=== PATIENT | female | born 1955 | race Two or more races ===

== ENCOUNTER → 2023-08-12 | Outpatient (CLI) | payer OTHER ==
[2023-08-12 12:18] LABS: Basophils # (auto) 0 10 ^3/uL (0-0.2); Basophils % (auto) 0.6 % (0.0-2.0); Eosinophils # (auto) 0.3 10 ^3/uL (0-0.8); Hemoglobin 14.3 g/dL (12.2-16.2); Monocytes # (auto) 0.6 10 ^3/uL (0-1.3); Neutrophils # (auto) 4.8 10 ^3/uL (1.6-8.6); Nucleated Red Blood Cells % 0.1 %
[2023-08-12 12:19] LABS: Eosinophils % (auto) 3.5 % (0.0-7.0); Hematocrit 42.9 % (36.0-46.0); Lymphocytes # (auto) 1.8 10 ^3/uL (0.4-5.4); Lymphocytes % (auto) 23.7 % (10.0-50.0); Mean Corpuscular Hemoglobin 26.3 pg (28.0-32.0); Mean Corpuscular Hgb Conc. 33.2 g/dL (32.0-36.0); Mean Corpuscular Volume 79.2 fL (80.0-100.0); Monocytes % (auto) 7.8 % (0.0-12.0); Neutrophils % (auto) 64.4 % (37.0-80.0); Red Blood Cells 5.42 10^6/uL (4.0-5.20); Red Cell Distribution Width 13.8 % (11.8-14.3); White Blood Cell 7.4 10^3/uL (4.4-10.8)
[2023-08-12 13:03] LABS: Urine Bacteria NONE SEEN /hpf (None Seen); Urine Blood Negative /uL (Negative); Urine Budding Yeast FEW /hpf (None Seen); Urine Clarity Clear (Clear); Urine Color Yellow (Yellow); Urine Protein, UAD Negative (Negative); Urine Specific Gravity 1.012 (1.001-1.035); Urine Urobilinogen Normal (Negative); Urine WBC 20 /hpf (0 - 5)
[2023-08-12 13:10] LABS: Alanine Aminotransferase 31 U/L (7-40); Albumin 4.3 g/dL (3.2-4.8); Alkaline Phosphatase 121 U/L (46-116); Anion Gap 5 (5-15); Aspartate Aminotransferase 13 U/L (13-40); BUN/Creatinine Ratio 16.3 (10.0-20.0); Bilirubin, Total 1.1 mg/dL (0.2-1.0); Blood Urea Nitrogen 13 mg/dL (9-23); Calcium 9.7 mg/dL (8.5-10.1); Carbon Dioxide 30 mmol/L (20-30); Chloride 106 mmol/L (98-107); Cholesterol 182 mg/dL (< 200); Glucose 99 mg/dL (74-106); HDL Cholesterol 44 mg/dL (40-59); LDL Cholesterol 125 mg/dL (< 100); Potassium 4.1 mmol/L (3.5-5.1); Sodium 141 mmol/L (136-145); Total Protein 7.1 g/dL (5.7-8.2); Triglycerides 132 mg/dL (< 150)
== END | disposition home or self-care (01) ==
LOC: LAB 11:58
DX: I10 Essential (primary) hypertension (principal); N28.89 Other specified disorders of kidney and ureter
CPT/HCPCS: 36415; 80053; 80061; 81001; 82274; 82306; 83036; 84443; 85025

== ENCOUNTER 2023-11-09 06:04 | Inpatient (IN) | payer BC, OTHER ==
[~2023-11-09] VITALS: Ht 162.6 cm; Wt 104.5 kg
[2023-11-09 06:52] LABS: Basophils # (auto) 0.1 10 ^3/uL (0-0.2); Eosinophils # (auto) 0.1 10 ^3/uL (0-0.8); Lymphocytes # (auto) 1.9 10 ^3/uL (0.4-5.4); Nucleated Red Blood Cells % 0.1 %
[2023-11-09 06:54] LABS: Eosinophils % (auto) 0.8 % (0.0-7.0); Hematocrit 38.1 % (36.0-46.0); Hemoglobin 12.3 g/dL (12.2-16.2); Lymphocytes % (auto) 13.2 % (10.0-50.0); Mean Corpuscular Hemoglobin 25.8 pg (28.0-32.0); Mean Corpuscular Hgb Conc. 32.4 g/dL (32.0-36.0); Mean Corpuscular Volume 79.6 fL (80.0-100.0); Monocytes # (auto) 1.4 10 ^3/uL (0-1.3); Monocytes % (auto) 9.4 % (0.0-12.0); Neutrophils # (auto) 10.9 10 ^3/uL (1.6-8.6); Neutrophils % (auto) 75.6 % (37.0-80.0); Red Blood Cells 4.79 10^6/uL (4.0-5.20); Red Cell Distribution Width 13.6 % (11.8-14.3); White Blood Cell 14.5 10^3/uL (4.4-10.8)
[2023-11-09 07:08] LABS: Alanine Aminotransferase 20 U/L (7-40); Albumin 4.2 g/dL (3.2-4.8); Alkaline Phosphatase 132 U/L (46-116); Anion Gap 8 (5-15); Aspartate Aminotransferase 12 U/L (13-40); Blood Urea Nitrogen 16 mg/dL (9-23); Calcium 9.2 mg/dL (8.7-10.4); Carbon Dioxide 27 mmol/L (20-30); Chloride 103 mmol/L (98-107); Glucose 112 mg/dL (74-106); Potassium 3.9 mmol/L (3.5-5.1); Sodium 138 mmol/L (136-145)
[2023-11-09 07:09] LABS: Bilirubin, Total 1.4 mg/dL (0.2-1.0); Total Protein 6.7 g/dL (5.7-8.2)
[2023-11-09 07:40] LABS: Urine Bacteria FEW /hpf (None Seen); Urine Blood Negative /uL (Negative); Urine Clarity Clear (Clear); Urine Color Yellow (Yellow); Urine Protein, UAD Negative (Negative); Urine Specific Gravity 1.017 (1.001-1.035); Urine Urobilinogen Normal (Negative); Urine WBC 14 /hpf (0 - 5); Urine pH 5.5 (5.0-8.0)
[2023-11-09] MEDS ORDERED: cefTRIAXone 1GM/50ML D5W 50 ML IV ONE (08:00)
[2023-11-09] MEDS ORDERED: ASPirin-EC 325mg tab PO ONE (08:00)
[2023-11-09] MEDS ORDERED: NITROGLYCERIN 0.4 MG SL TAB SL PRN (10:45)
[2023-11-09] MEDS ORDERED: MORPHINE SULFATE 4 MG/ML SYR/VIAL IV PRN (10:45)
[2023-11-09] MEDS ORDERED: ONDANSETRON HCL 4 MG/2 ML VIAL IV PRN (10:45)
[2023-11-09] MEDS ORDERED: ACETAMINOPHEN 325 MG TAB PO PRN (10:45)
[2023-11-09] MEDS ORDERED: IOHEXOL 350 MG/ML 100ML IJ ONE (11:28)
[2023-11-09 12:05] LABS: COVID19 ANTIGEN SOFIA FIA NEGATIVE (NEGATIVE)
[2023-11-09 12:06] LABS: Rapid Influenza A Negative (Negative); Rapid Influenza B Negative (Negative)
[2023-11-09] MEDS ORDERED: MORPHINE SULFATE INJ 2 MG/ml SYRG IV PRN (12:15)
[2023-11-09 12:35] LABS: INR 1.09 (0.9-1.15); Prothrombin Time 11.4 sec (9.3-11.8)
[2023-11-09] MEDS ORDERED: FUROSEMIDE 20 MG/2 ML VIAL IV ONE (15:00)
[2023-11-09 21:52] VITALS: PULSE 88; RESP 18; TEMP 36.7; O2SAT 98
[2023-11-09 22:00] VITALS: BP 140/78; PULSE 119; RESP 18; TEMP 98.1; O2SAT 95
[2023-11-09] MEDS ORDERED: ENOXAPARIN SOD 100 MG/1 ML SYRINGE SC SCH (22:00)
[2023-11-09] MEDS ORDERED: ATORVASTATIN 20 MG TAB PO SCH (22:00)
[2023-11-09] MEDS: PIPERACILLIN-TAZOB 3.375GM 100 ML IV SCH ×2 (22:05→22:17)
[2023-11-09] MEDS: METOPROLOL TARTRATE 50 MG TAB PO SCH (22:16)
[2023-11-09] MEDS: SODIUM CHLORIDE 0.9% 1,000 ML IV SCH (22:21)
[2023-11-09] MEDS ORDERED: MET50T PO (23:40)
[2023-11-09] MEDS ORDERED: LOSA50TA46 PO (23:41)
[2023-11-10] VITALS (7 sets, daily range): BP systolic 106–138; BP diastolic 47–57; PULSE 68–90; RESP 16–20; TEMP 97.3–98.6; O2SAT 92–98
[2023-11-10] MEDS: PIPERACILLIN-TAZOB 3.375GM 100 ML IV SCH ×2 (06:36→12:21)
[2023-11-10 07:10] LABS: Basophils # (auto) 0 10 ^3/uL (0-0.2); Eosinophils # (auto) 0.1 10 ^3/uL (0-0.8); Mean Corpuscular Volume 79.5 fL (80.0-100.0)
[2023-11-10 07:12] LABS: Basophils % (auto) 0.4 % (0.0-2.0); Hematocrit 33.8 % (36.0-46.0); Lymphocytes # (auto) 1.3 10 ^3/uL (0.4-5.4); Lymphocytes % (auto) 11.4 % (10.0-50.0); Mean Corpuscular Hemoglobin 25.9 pg (28.0-32.0); Mean Corpuscular Hgb Conc. 32.5 g/dL (32.0-36.0); Monocytes # (auto) 1.2 10 ^3/uL (0-1.3); Monocytes % (auto) 10.2 % (0.0-12.0); Nucleated Red Blood Cells % 0.1 %; Red Blood Cells 4.25 10^6/uL (4.0-5.20); Red Cell Distribution Width 13.5 % (11.8-14.3); White Blood Cell 11.7 10^3/uL (4.4-10.8)
[2023-11-10 07:14] LABS: Alanine Aminotransferase 13 U/L (7-40); Alkaline Phosphatase 117 U/L (46-116); Anion Gap 8 (5-15); Aspartate Aminotransferase 9 U/L (13-40); BUN/Creatinine Ratio 15.7 (10.0-20.0); Blood Urea Nitrogen 14 mg/dL (9-23); Calcium 8.9 mg/dL (8.5-10.1); Carbon Dioxide 27 mmol/L (20-30); Chloride 104 mmol/L (98-107); Cholesterol 110 mg/dL (< 200); Glucose 101 mg/dL (74-106); LDL Cholesterol 85 mg/dL (< 100); Potassium 3.7 mmol/L (3.5-5.1); Sodium 139 mmol/L (136-145); Triglycerides 78 mg/dL (< 150)
[2023-11-10 07:15] LABS: Bilirubin, Total 1.1 mg/dL (0.2-1.0); HDL Cholesterol 18 mg/dL (40-59); Total Protein 6.5 g/dL (5.7-8.2)
[2023-11-10] MEDS: METOPROLOL TARTRATE 50 MG TAB PO SCH (09:46)
[2023-11-10] MEDS: SODIUM CHLORIDE 0.9% 1,000 ML IV SCH (09:49)
[2023-11-10] MEDS ORDERED: FUROSEMIDE 20 MG/2 ML VIAL IV SCH (10:00)
[2023-11-10] MEDS ORDERED: ASPirin 81 mg TAB PO SCH (10:00)
[2023-11-10] MEDS ORDERED: ENOXAPARIN SOD 30 MG/0.3 ML SYRINGE SC SCH (10:00)
[2023-11-10] MEDS ORDERED: ENOXAPARIN SOD 40 MG/0.4 ML SYRINGE SC SCH (10:00)
[2023-11-10] MEDS ORDERED: GADOTERATE MEG 10 MMOL/20ml INJ (0.5MMOL/ml) IV ONE (12:11)
[2023-11-10] MEDS ORDERED: CEPH250C PO (16:51)
== END 2023-11-10 19:34 | disposition home or self-care (01) | DRG 675 ==
LOC: ER 06:04 → TELE 11:20 → TELE-EAST 21:45
PROVIDERS: ADMIT Internal Medicine; ATTEND Student in an Organized Health Care Education/Training Program
PROC: 07BC3ZX Excision of Pelvis Lymphatic, Percutaneous Approach, Diagnostic (ICD-10-PCS; principal; 2023-11-10)
DX: N13.6 Pyonephrosis (principal); M79.3 Panniculitis, unspecified; K42.9 Umbilical hernia without obstruction or gangrene; E78.5 Hyperlipidemia, unspecified; E11.9 Type 2 diabetes mellitus without complications; Z20.822 Contact with and (suspected) exposure to COVID-19; K76.0 Fatty (change of) liver, not elsewhere classified; R74.01 Elevation of levels of liver transaminase levels; I10 Essential (primary) hypertension; Z68.39 Body mass index [BMI] 39.0-39.9, adult; E66.01 Morbid (severe) obesity due to excess calories; I11.0 Hypertensive heart disease with heart failure; I50.9 Heart failure, unspecified; J45.909 Unspecified asthma, uncomplicated; Z79.84 Long term (current) use of oral hypoglycemic drugs; Z82.49 Family history of ischemic heart disease and other diseases of the circulatory system; Z83.3 Family history of diabetes mellitus
CPT/HCPCS: 36415; 71045; 71260; 74176; 74177; 76881; 76942; 80053; 80061; 81001; 82378; 83735; 83880; 84484; 85025; 85379; 85610; 86304; 87040; 87086; 87426; 87804; 93005; 93306; 96365; G0378; J2543

== ENCOUNTER → 2024-01-20 | Outpatient (CLI) | payer OTHER, BC ==
[~2024-01-20] MED LIST: CEPH250C PO; LOSA50TA46 PO; MET50T PO
[2024-01-20 11:55] LABS: Alanine Aminotransferase 32 U/L (7-40); Albumin 4.2 g/dL (3.2-4.8); Alkaline Phosphatase 138 U/L (46-116); Anion Gap 6 (5-15); Aspartate Aminotransferase 29 U/L (13-40); BUN/Creatinine Ratio 12.7 (10.0-20.0); Bilirubin, Total 1.5 mg/dL (0.2-1.0); Blood Urea Nitrogen 10 mg/dL (9-23); Calcium 9.5 mg/dL (8.5-10.1); Carbon Dioxide 30 mmol/L (20-30); Chloride 104 mmol/L (98-107); Cholesterol 118 mg/dL (< 200); Glucose 105 mg/dL (74-106); HDL Cholesterol 24 mg/dL (40-59); LDL Cholesterol 83 mg/dL (< 100); Potassium 3.9 mmol/L (3.5-5.1); Sodium 140 mmol/L (136-145); Triglycerides 75 mg/dL (< 150)
[2024-01-20 12:45] LABS: Urine Bacteria FEW /hpf (None Seen); Urine Blood TRACE /uL (Negative); Urine Budding Yeast FEW /hpf (None Seen); Urine Clarity HAZY (Clear); Urine Color Yellow (Yellow); Urine Protein, UAD TRACE (Negative); Urine Specific Gravity 1.016 (1.001-1.035); Urine Urobilinogen Normal (Negative); Urine WBC 200 /hpf (0 - 5)
== END | disposition home or self-care (01) ==
LOC: LAB 11:00
DX: I10 Essential (primary) hypertension (principal); E55.9 Vitamin D deficiency, unspecified; E78.5 Hyperlipidemia, unspecified; E66.01 Morbid (severe) obesity due to excess calories
CPT/HCPCS: 36415; 80053; 80061; 81001; 82306; 83036

== ENCOUNTER 2024-02-11 10:20 | Emergency (ER) | payer BC, OTHER ==
[~2024-02-11] VITALS: Ht 160 cm; Wt 99.1 kg
[2024-02-11 11:20] LABS: Basophils # (auto) 0.1 10 ^3/uL (0-0.2); Eosinophils # (auto) 0.1 10 ^3/uL (0-0.8); Lymphocytes # (auto) 1.4 10 ^3/uL (0.4-5.4)
[2024-02-11 11:21] LABS: Basophils % (auto) 0.5 % (0.0-2.0); Eosinophils % (auto) 0.8 % (0.0-7.0); Hematocrit 34.4 % (36.0-46.0); Hemoglobin 10.8 g/dL (12.2-16.2); Lymphocytes % (auto) 9.4 % (10.0-50.0); Mean Corpuscular Hemoglobin 25.1 pg (28.0-32.0); Mean Corpuscular Hgb Conc. 31.5 g/dL (32.0-36.0); Mean Corpuscular Volume 79.7 fL (80.0-100.0); Monocytes # (auto) 1.6 10 ^3/uL (0-1.3); Monocytes % (auto) 10.7 % (0.0-12.0); Neutrophils # (auto) 11.6 10 ^3/uL (1.6-8.6); Neutrophils % (auto) 78.6 % (37.0-80.0); Red Blood Cells 4.32 10^6/uL (4.0-5.20); Red Cell Distribution Width 15.4 % (11.8-14.3); White Blood Cell 14.8 10^3/uL (4.4-10.8)
[2024-02-11 11:38] LABS: Urine Bacteria NONE SEEN /hpf (None Seen); Urine Blood Negative /uL (Negative); Urine Clarity Clear (Clear); Urine Color Yellow (Yellow); Urine Protein, UAD TRACE (Negative); Urine Specific Gravity 1.014 (1.001-1.035); Urine Urobilinogen Normal (Negative); Urine WBC 1 /hpf (0 - 5); Urine pH 6.5 (5.0-8.0)
[2024-02-11 11:39] LABS: Alanine Aminotransferase 13 U/L (7-40); Albumin 4.1 g/dL (3.2-4.8); Alkaline Phosphatase 131 U/L (46-116); Anion Gap 5 (5-15); Aspartate Aminotransferase 16 U/L (13-40); BUN/Creatinine Ratio 13.7 (10.0-20.0); Blood Urea Nitrogen 13 mg/dL (9-23); Calcium 9.4 mg/dL (8.5-10.1); Carbon Dioxide 30 mmol/L (20-30); Chloride 102 mmol/L (98-107); Glucose 115 mg/dL (74-106); Potassium 4.3 mmol/L (3.5-5.1); Sodium 137 mmol/L (136-145)
[2024-02-11 11:40] LABS: Bilirubin, Direct 0.5 mg/dL (<0.3); Bilirubin, Total 1.1 mg/dL (0.2-1.0); Total Protein 6.6 g/dL (5.7-8.2)
[2024-02-11 12:05] LABS: Lipase 42 U/L (12-53)
[2024-02-11 13:40] VITALS: BP 118/55; PULSE 69; RESP 17; TEMP 99.1; O2SAT 96
== END 2024-02-11 13:42 | disposition home or self-care (01) ==
LOC: ER 10:20
DX: D72.829 Elevated white blood cell count, unspecified (principal); R53.1 Weakness; I10 Essential (primary) hypertension; Z79.899 Other long term (current) drug therapy
CPT/HCPCS: 36415; 71045; 76705; 80048; 80076; 81001; 82962; 83690; 84484; 85025; 93005

== ENCOUNTER 2024-05-12 11:58 | Emergency (ER) | payer OTHER ==
[~2024-05-12] VITALS: Ht 160 cm; Wt 97.2 kg
[~2024-05-12 11:58] MED LIST changes: +LOSA-534 PO; -LOSA50TA46 PO
[2024-05-12 12:37] LABS: Hematocrit 25.3 % (36.0-46.0); Hemoglobin 8.3 g/dL (12.2-16.2); Mean Corpuscular Hemoglobin 24.8 pg (28.0-32.0); Mean Corpuscular Hgb Conc. 32.7 g/dL (32.0-36.0); Mean Corpuscular Volume 75.8 fL (80.0-100.0); Red Blood Cells 3.34 10^6/uL (4.0-5.20); Red Cell Distribution Width 16.2 % (11.8-14.3); White Blood Cell 11.4 10^3/uL (4.4-10.8)
[2024-05-12 12:44] LABS: Band Neutrophils % (manual) 0; Basophils % (manual) 0 (0.0-2.0); Eosinophils % (manual) 0 (0-7); Metamyelocytes % 0; Myelocytes % 0; Promyelocytes % 0; Reactive Lymphocytes 0
[2024-05-12 12:52] LABS: Alanine Aminotransferase 25 U/L (7-40); Albumin 3.5 g/dL (3.2-4.8); Alkaline Phosphatase 244 U/L (46-116); Anion Gap 5 (5-15); Aspartate Aminotransferase 19 U/L (13-40); BUN/Creatinine Ratio 14.4 (10.0-20.0); Bilirubin, Total 0.9 mg/dL (0.2-1.0); Blood Urea Nitrogen 14 mg/dL (9-23); Calcium 8.9 mg/dL (8.5-10.1); Carbon Dioxide 27 mmol/L (20-30); Chloride 102 mmol/L (98-107); Glucose 142 mg/dL (74-106); Magnesium 1.6 mg/dL (1.6-2.6); Potassium 4.2 mmol/L (3.5-5.1); Sodium 134 mmol/L (136-145)
[2024-05-12 12:53] LABS: Total Protein 6.1 g/dL (5.7-8.2)
[2024-05-12 12:59] LABS: INR 1.3 (0.9-1.15); Partial Thromboplastin Time 28.5 SEC (24.5-34.5); Prothrombin Time 13.5 sec (9.3-11.8)
[2024-05-12 13:11] LABS: Blast Cells 3; Lymphocytes % (manual) 8 (10.0-50.0); Monocytes % (manual) 13 (0-12); Platelet Estimate Adequate
[2024-05-12 14:26] LABS: Urine Bacteria FEW /hpf (None Seen); Urine Blood 1+ /uL (Negative); Urine Clarity Ex.Turbid (Clear); Urine Color Orange (Yellow); Urine Mucus FEW (None Seen); Urine Protein, UAD 1+ (Negative); Urine Specific Gravity 1.016 (1.001-1.035); Urine Urobilinogen Normal (Negative); Urine WBC 62 /hpf (0 - 5); Urine pH 5.5 (5.0-9.0)
[2024-05-12 14:48] LABS: COVID19 ANTIGEN SOFIA FIA NEGATIVE (NEGATIVE)
[2024-05-12] MEDS: CIPROFLOXACIN HCL 500 MG TAB PO ONE (15:42)
[2024-05-12] MEDS ORDERED: CIPR-173 PO (16:20)
[2024-05-12 16:50] VITALS: BP 126/54; PULSE 104; RESP 16; TEMP 98.8; O2SAT 98
== END 2024-05-12 16:50 | disposition home or self-care (01) ==
LOC: ER 12:00
DX: D64.9 Anemia, unspecified (principal); R53.1 Weakness; Z79.899 Other long term (current) drug therapy; Z90.89 Acquired absence of other organs; Z98.51 Tubal ligation status; Z20.822 Contact with and (suspected) exposure to COVID-19
CPT/HCPCS: 36415; 71045; 80053; 81001; 83735; 83880; 84484; 85007; 85027; 85610; 85730; 87426; 93005

== ENCOUNTER 2024-05-18 20:39 | Inpatient (IN) | payer OTHER ==
[~2024-05-18] VITALS: Ht 162.6 cm; Wt 103.0 kg
[2024-05-18 20:00] VITALS: PULSE 115
[~2024-05-18 20:39] MED LIST changes: +CIPR-173 PO
[2024-05-18 21:45] VITALS: PULSE 68; RESP 16; O2SAT 98
[2024-05-18] MEDS: SODIUM CHLORIDE 0.9% 1,000 ML IV ONE (21:47)
[2024-05-18 21:52] LABS: Basophils # (auto) 0 10 ^3/uL (0-0.2); Basophils % (auto) 0.4 % (0.0-2.0); Eosinophils # (auto) 0 10 ^3/uL (0-0.8); Hematocrit 24.4 % (36.0-46.0); Hemoglobin 7.7 g/dL (12.2-16.2); Lymphocytes # (auto) 0.9 10 ^3/uL (0.4-5.4); Lymphocytes % (auto) 7.2 % (10.0-50.0); Mean Corpuscular Hemoglobin 23.5 pg (28.0-32.0); Mean Corpuscular Hgb Conc. 31.7 g/dL (32.0-36.0); Mean Corpuscular Volume 74.3 fL (80.0-100.0); Monocytes # (auto) 1.7 10 ^3/uL (0-1.3); Monocytes % (auto) 13.2 % (0.0-12.0); Neutrophils # (auto) 10.4 10 ^3/uL (1.6-8.6); Neutrophils % (auto) 79.2 % (37.0-80.0); Red Blood Cells 3.29 10^6/uL (4.0-5.20); Red Cell Distribution Width 16.7 % (11.8-14.3); White Blood Cell 13.1 10^3/uL (4.4-10.8)
[2024-05-18 22:03] LABS: Chloride 100 mmol/L (98-107); Potassium 3.9 mmol/L (3.5-5.1); Sodium 131 mmol/L (136-145)
[2024-05-18 22:04] LABS: Anion Gap 8 (5-15); Calcium 8.8 mg/dL (8.5-10.1); Carbon Dioxide 23 mmol/L (20-30)
[2024-05-18 22:09] LABS: BUN/Creatinine Ratio 16.3 (10.0-20.0); Blood Urea Nitrogen 23 mg/dL (9-23); Glucose 119 mg/dL (74-106)
[2024-05-18 23:13] LABS: Urine Bacteria None Seen /hpf (None Seen)
[2024-05-18 23:24] LABS: Urine Blood 1+ /uL (Negative); Urine Clarity Ex.Turbid (Clear); Urine Color Orange (Yellow); Urine Protein, UAD 1+ (Negative); Urine Specific Gravity 1.018 (1.001-1.035); Urine Urobilinogen 4 mg/dL (Negative); Urine WBC 15 /hpf (0 - 5); Urine WBC Clumps PRESENT /hpf (None Seen); Urine pH 5.5 (5.0-9.0)
[2024-05-18 23:45] VITALS: PULSE 68; RESP 16; O2SAT 98
[2024-05-19] VITALS (10 sets, daily range): BP systolic 92–123; BP diastolic 40–55; PULSE 68–115; RESP 16–21; TEMP 98.3–99.8; O2SAT 96–100
[2024-05-19] MEDS ORDERED: ACETAMINOPHEN 325 MG TAB PO PRN (01:00)
[2024-05-19] MEDS ORDERED: DOCUSATE SOD 100 MG CAP PO PRN (01:00)
[2024-05-19] MEDS ORDERED: NITROGLYCERIN 0.4 MG SL TAB SL PRN (01:00)
[2024-05-19] MEDS ORDERED: HYDROcodone-ACET 5/325MG TAB PO PRN (01:00)
[2024-05-19] MEDS ORDERED: MORPHINE SULFATE INJ 2 MG/ml SYRG IV PRN (01:00)
[2024-05-19] MEDS ORDERED: ONDANSETRON HCL 4 MG/2 ML VIAL IV PRN (01:00)
[2024-05-19] MEDS ORDERED: hydrALAZINE HCL 20 MG/ML VL IV PRN (01:00)
[2024-05-19] MEDS: cefTRIAXone 1GM/50ML D5W 50 ML IV ONE (03:00)
[2024-05-19] MEDS: SODIUM CHLORIDE 0.9% 1,000 ML IV SCH (03:04)
[2024-05-19] MEDS: AZITHROMYCIN 500MG/ 250ML 250 ML IV ONE (03:11)
[2024-05-19 04:49] LABS: Mean Corpuscular Hgb Conc. 32.3 g/dL (32.0-36.0)
[2024-05-19 04:53] LABS: Hematocrit 20.4 % (36.0-46.0); Mean Corpuscular Hemoglobin 24.2 pg (28.0-32.0); Red Blood Cells 2.72 10^6/uL (4.0-5.20); Red Cell Distribution Width 16.6 % (11.8-14.3); White Blood Cell 11.2 10^3/uL (4.4-10.8)
[2024-05-19 05:07] LABS: Alanine Aminotransferase 39 U/L (7-40); Alkaline Phosphatase 178 U/L (46-116); Anion Gap 6 (5-15); Aspartate Aminotransferase 61 U/L (13-40); Bilirubin, Total 1.2 mg/dL (0.2-1.0); Blood Urea Nitrogen 23 mg/dL (9-23); Calcium 8.5 mg/dL (8.7-10.4); Carbon Dioxide 23 mmol/L (20-30); Chloride 103 mmol/L (98-107); Glucose 109 mg/dL (74-106); Potassium 4.1 mmol/L (3.5-5.1); Sodium 132 mmol/L (136-145); Total Protein 5.8 g/dL (5.7-8.2)
[2024-05-19 06:29] LABS: Hemoglobin 6.6 g/dL (12.2-16.2)
[2024-05-19 06:31] LABS: Band Neutrophils % (manual) 0; Basophils % (manual) 0 (0.0-2.0); Blast Cells 0; Eosinophils % (manual) 0 (0-7); Metamyelocytes % 0; Myelocytes % 0; Promyelocytes % 0; Reactive Lymphocytes 0
[2024-05-19 08:33] LABS: Hematocrit 20.9 % (36.0-46.0); Mean Corpuscular Hemoglobin 24.8 pg (28.0-32.0); Mean Corpuscular Hgb Conc. 33.5 g/dL (32.0-36.0); Red Blood Cells 2.83 10^6/uL (4.0-5.20); Red Cell Distribution Width 16.6 % (11.8-14.3); White Blood Cell 9.5 10^3/uL (4.4-10.8)
[2024-05-19 08:35] LABS: Basophils % (manual) 0 (0.0-2.0); Blast Cells 0; Eosinophils % (manual) 0 (0-7); Metamyelocytes % 0; Myelocytes % 0; Promyelocytes % 0; Reactive Lymphocytes 0
[2024-05-19 09:13] LABS: Band Neutrophils % (manual) 2; Lymphocytes % (manual) 12 (10.0-50.0); Monocytes % (manual) 6 (0-12)
[2024-05-19 09:14] LABS: Hypochromia Slight; Platelet Estimate Adequate
[2024-05-19 09:37] LABS: Lymphocytes % (manual) 12 (10.0-50.0); Monocytes % (manual) 6 (0-12); Platelet Estimate Adequate
[2024-05-19] MEDS: FAMOTIDINE (10MG/ML) 2ML VL IV SCH (10:31)
[2024-05-19] MEDS: diphenhdrAMINE HCL 12.5 MG/5 ML UD PO ONE (11:30)
[2024-05-19] MEDS ORDERED: HYDR12.59 PO (15:43)
[2024-05-19 17:15] LABS: % Iron Saturation 6.5 % (15-50)
[2024-05-19 17:18] LABS: Folate (Folic Acid) 13.25 ng/mL (>5.38); Free T4 (Free Thyroxine) 1.07 ng/dL (0.89-1.76)
[2024-05-19] MEDS: cefTRIAXone 1GM/50ML D5W 50 ML IV SCH (21:17)
[2024-05-20] VITALS (8 sets, daily range): BP systolic 98–115; BP diastolic 40–47; PULSE 78–101; RESP 18–20; TEMP 98.2–99.2; O2SAT 92–100
[2024-05-20] MEDS ORDERED: AZITHROMYCIN 500MG/ 250ML 250 ML IV SCH (03:00)
[2024-05-20 07:21] LABS: Hematocrit 23.7 % (36.0-46.0); Hemoglobin 7.8 g/dL (12.2-16.2); Mean Corpuscular Hemoglobin 25.4 pg (28.0-32.0); Mean Corpuscular Volume 76.9 fL (80.0-100.0); Red Blood Cells 3.08 10^6/uL (4.0-5.20); Red Cell Distribution Width 17.9 % (11.8-14.3); White Blood Cell 6.7 10^3/uL (4.4-10.8)
[2024-05-20 07:23] LABS: Basophils % (manual) 0 (0.0-2.0); Blast Cells 0; Eosinophils % (manual) 0 (0-7); Metamyelocytes % 0; Myelocytes % 0; Promyelocytes % 0; Reactive Lymphocytes 0
[2024-05-20 07:35] LABS: Alanine Aminotransferase 37 U/L (7-40); Alkaline Phosphatase 219 U/L (46-116); Anion Gap 6 (5-15); Aspartate Aminotransferase 51 U/L (13-40); BUN/Creatinine Ratio 26.5 (10.0-20.0); Blood Urea Nitrogen 30 mg/dL (9-23); Calcium 8.6 mg/dL (8.5-10.1); Carbon Dioxide 25 mmol/L (20-30); Chloride 105 mmol/L (98-107); Glucose 70 mg/dL (74-106); Potassium 4.1 mmol/L (3.5-5.1); Sodium 136 mmol/L (136-145); Total Protein 5.6 g/dL (5.7-8.2)
[2024-05-20 08:43] LABS: Band Neutrophils % (manual) 1; Lymphocytes % (manual) 26 (10.0-50.0); Monocytes % (manual) 4 (0-12); Platelet Estimate Adequate
[2024-05-20] MEDS: IRON SUCROSE COMPLEX 100 ML IV SCH (12:03)
[2024-05-20] MEDS ORDERED: OMEP1CAP70 PO (21:10)
[2024-05-21 01:04] VITALS: BP 119/52; PULSE 97; RESP 20; TEMP 98.7; O2SAT 95
[2024-05-21 05:00] VITALS: BP 125/55; PULSE 101; RESP 18; TEMP 98.2; O2SAT 94
[2024-05-21 06:15] LABS: Basophils # (auto) 0 10 ^3/uL (0-0.2); Basophils % (auto) 0.5 % (0.0-2.0); Eosinophils # (auto) 0 10 ^3/uL (0-0.8); Eosinophils % (auto) 0.3 % (0.0-7.0)
[2024-05-21 06:18] LABS: Hematocrit 23.9 % (36.0-46.0); Lymphocytes # (auto) 0.6 10 ^3/uL (0.4-5.4); Lymphocytes % (auto) 8.5 % (10.0-50.0); Mean Corpuscular Hemoglobin 25.2 pg (28.0-32.0); Mean Corpuscular Hgb Conc. 33.3 g/dL (32.0-36.0); Mean Corpuscular Volume 75.7 fL (80.0-100.0); Monocytes % (auto) 13.3 % (0.0-12.0); Neutrophils # (auto) 5.7 10 ^3/uL (1.6-8.6); Neutrophils % (auto) 77.4 % (37.0-80.0); Nucleated Red Blood Cells % 0.1 %; Red Blood Cells 3.16 10^6/uL (4.0-5.20); White Blood Cell 7.4 10^3/uL (4.4-10.8)
[2024-05-21 06:45] LABS: Alanine Aminotransferase 60 U/L (7-40); Alkaline Phosphatase 373 U/L (46-116); Anion Gap 4 (5-15); BUN/Creatinine Ratio 24.4 (10.0-20.0); Blood Urea Nitrogen 22 mg/dL (9-23); Calcium 8.4 mg/dL (8.5-10.1); Carbon Dioxide 24 mmol/L (20-30); Chloride 107 mmol/L (98-107); Glucose 92 mg/dL (74-106); Magnesium 1.6 mg/dL (1.6-2.6); Potassium 3.8 mmol/L (3.5-5.1); Sodium 135 mmol/L (136-145)
[2024-05-21 06:46] LABS: Aspartate Aminotransferase 84 U/L (13-40)
[2024-05-21 06:47] LABS: Bilirubin, Total 1.2 mg/dL (0.2-1.0); Total Protein 5.6 g/dL (5.7-8.2)
[2024-05-21 07:01] LABS: Urine Bacteria None Seen /hpf (None Seen)
[2024-05-21 07:15] LABS: Urine Amorphous Crystal FEW /hpf (None Seen); Urine Blood 1+ /uL (Negative); Urine Clarity Turbid (Clear); Urine Color Yellow (Yellow); Urine Protein, UAD 1+ (Negative); Urine Specific Gravity 1.019 (1.001-1.035); Urine Urobilinogen 6 mg/dL (Negative); Urine WBC 4 /hpf (0 - 5); Urine pH 5.5 (5.0-9.0)
[2024-05-21 08:00] VITALS: PULSE 100; PULSE 93; RESP 18
[2024-05-21 08:17] VITALS: BP 122/55; PULSE 100; RESP 18; TEMP 99; O2SAT 93
[2024-05-21 13:14] VITALS: BP 132/50; PULSE 102; RESP 18; TEMP 99.5; O2SAT 93
[2024-05-21] MEDS ORDERED: FER325T PO (15:58)
[2024-05-21 16:13] VITALS: BP 122/55; PULSE 98; RESP 18; TEMP 98.1; O2SAT 93
== END 2024-05-21 17:20 | disposition home or self-care (01) | DRG 811 ==
LOC: ER 20:39 → TELE 05-19 01:01 → TELE-EAST 05-19 15:11
PROVIDERS: ADMIT Internal Medicine; ATTEND Emergency Medicine
PROC: 30233N1 Transfusion of Nonautologous Red Blood Cells into Peripheral Vein, Percutaneous Approach (ICD-10-PCS; principal; 2024-05-19)
DX: D50.9 Iron deficiency anemia, unspecified (principal); J18.9 Pneumonia, unspecified organism; N17.0 Acute kidney failure with tubular necrosis; E87.1 Hypo-osmolality and hyponatremia; N39.0 Urinary tract infection, site not specified; F32.A Depression, unspecified; R79.89 Other specified abnormal findings of blood chemistry; E66.01 Morbid (severe) obesity due to excess calories; E11.22 Type 2 diabetes mellitus with diabetic chronic kidney disease; I12.9 Hypertensive chronic kidney disease with stage 1 through stage 4 chronic kidney disease, or unspecified chronic kidney disease; N18.9 Chronic kidney disease, unspecified; Z79.2 Long term (current) use of antibiotics; Z79.899 Other long term (current) drug therapy; Z82.79 Family history of other congenital malformations, deformations and chromosomal abnormalities; Z83.3 Family history of diabetes mellitus; Z82.49 Family history of ischemic heart disease and other diseases of the circulatory system; Z81.8 Family history of other mental and behavioral disorders; Z68.39 Body mass index [BMI] 39.0-39.9, adult
CPT/HCPCS: 36415; 70450; 71045; 80048; 80053; 81001; 82550; 82607; 82746; 82962; 83540; 83550; 83605; 83735; 83880; 84439; 84443; 84484; 85007; 85025; 85027; 86850; 86900; 86901; 86920; 87040; 87077; 87081; 87086; 87186; G0378; J1756; J3490

== ENCOUNTER 2024-05-23 13:01 | Inpatient (IN) | payer OTHER ==
[~2024-05-23] VITALS: Ht 160 cm; Wt 118.0 kg
[~2024-05-23 13:01] MED LIST changes: -CIPR-173 PO; +FER325T PO; +HYDR12.59 PO; +OMEP1CAP70 PO
[2024-05-23 14:31] LABS: Basophils # (auto) 0 10 ^3/uL (0-0.2); Basophils % (auto) 0.3 % (0.0-2.0); Eosinophils # (auto) 0 10 ^3/uL (0-0.8); Eosinophils % (auto) 0.1 % (0.0-7.0); Hematocrit 25.4 % (36.0-46.0); Hemoglobin 8.2 g/dL (12.2-16.2); Lymphocytes % (auto) 6.2 % (10.0-50.0); Mean Corpuscular Hemoglobin 24.2 pg (28.0-32.0); Mean Corpuscular Hgb Conc. 32.2 g/dL (32.0-36.0); Mean Corpuscular Volume 75.2 fL (80.0-100.0); Monocytes # (auto) 1.3 10 ^3/uL (0-1.3); Monocytes % (auto) 8.7 % (0.0-12.0); Neutrophils % (auto) 84.7 % (37.0-80.0); Red Blood Cells 3.38 10^6/uL (4.0-5.20); Red Cell Distribution Width 17.9 % (11.8-14.3); White Blood Cell 15.4 10^3/uL (4.4-10.8)
[2024-05-23 14:54] LABS: Alanine Aminotransferase 37 U/L (7-40); Albumin 3.4 g/dL (3.2-4.8); Alkaline Phosphatase 345 U/L (46-116); Anion Gap 11 (5-15); Aspartate Aminotransferase 37 U/L (13-40); BUN/Creatinine Ratio 19.4 (10.0-20.0); Bilirubin, Total 1.9 mg/dL (0.2-1.0); Blood Urea Nitrogen 21 mg/dL (9-23); Calcium 9.3 mg/dL (8.5-10.1); Carbon Dioxide 22 mmol/L (20-30); Chloride 102 mmol/L (98-107); Glucose 105 mg/dL (74-106); Sodium 135 mmol/L (136-145); Total Protein 6.4 g/dL (5.7-8.2)
[2024-05-23] MEDS ORDERED: MORPHINE SULFATE INJ 2 MG/ml SYRG IV PRN ×2 (18:45)
[2024-05-23] MEDS ORDERED: DOCUSATE SOD 100 MG CAP PO PRN (18:45)
[2024-05-23] MEDS ORDERED: NITROGLYCERIN 0.4 MG SL TAB SL PRN (18:45)
[2024-05-23] MEDS: SODIUM CHLORIDE 0.9% 1,000 ML IV SCH (19:41)
[2024-05-23 19:47] LABS: Hemoglobin 7.8 g/dL (12.2-16.2)
[2024-05-23 20:00] VITALS: PULSE 68; RESP 14; O2SAT 98
[2024-05-23] MEDS: cefTRIAXone 1GM/50ML D5W 50 ML IV ONE (20:48)
[2024-05-23] MEDS: ONDANSETRON HCL 4 MG/2 ML VIAL IV PRN (20:50)
[2024-05-23 22:20] VITALS: BP 112/51; PULSE 113; RESP 18; TEMP 98.4; O2SAT 96
[2024-05-23 22:41] VITALS: BP 112/51; PULSE 108; PULSE 110; RESP 18; RESP 20; TEMP 98.4; O2SAT 96
[2024-05-23] MEDS: METOPROLOL TARTRATE 50 MG TAB PO SCH (23:12)
[2024-05-24] VITALS (41 sets, daily range): BP systolic 80–128; BP diastolic 36–98; PULSE 63–89; RESP 16–28; TEMP 96–99.8; O2SAT 91–98
[2024-05-24 06:13] LABS: Basophils # (auto) 0.1 10 ^3/uL (0-0.2); Basophils % (auto) 0.5 % (0.0-2.0); Eosinophils # (auto) 0 10 ^3/uL (0-0.8); Hematocrit 23.6 % (36.0-46.0); Hemoglobin 7.8 g/dL (12.2-16.2); Mean Corpuscular Hemoglobin 25.6 pg (28.0-32.0); Mean Corpuscular Hgb Conc. 32.9 g/dL (32.0-36.0); Monocytes # (auto) 1.1 10 ^3/uL (0-1.3); Red Blood Cells 3.03 10^6/uL (4.0-5.20)
[2024-05-24 06:15] LABS: Lymphocytes # (auto) 0.7 10 ^3/uL (0.4-5.4); Lymphocytes % (auto) 5.7 % (10.0-50.0); Mean Corpuscular Volume 77.7 fL (80.0-100.0); Monocytes % (auto) 8.7 % (0.0-12.0); Neutrophils # (auto) 10.3 10 ^3/uL (1.6-8.6); Neutrophils % (auto) 85.1 % (37.0-80.0); Nucleated Red Blood Cells % 0.1 %; Red Cell Distribution Width 18.6 % (11.8-14.3); White Blood Cell 12.1 10^3/uL (4.4-10.8)
[2024-05-24 06:44] LABS: Alanine Aminotransferase 24 U/L (7-40); Albumin 2.7 g/dL (3.2-4.8); Alkaline Phosphatase 234 U/L (46-116); Anion Gap 10 (5-15); Aspartate Aminotransferase 24 U/L (13-40); BUN/Creatinine Ratio 18.6 (10.0-20.0); Bilirubin, Total 1.2 mg/dL (0.2-1.0); Calcium 8.4 mg/dL (8.5-10.1); Carbon Dioxide 21 mmol/L (20-30); Chloride 104 mmol/L (98-107); Glucose 95 mg/dL (74-106); Potassium 4.1 mmol/L (3.5-5.1); Sodium 135 mmol/L (136-145); Total Protein 5.1 g/dL (5.7-8.2)
[2024-05-24 06:50] LABS: Blood Urea Nitrogen 31 mg/dL (9-23)
[2024-05-24] MEDS: PANTOPRAZOLE 40 MG TAB PO SCH (09:19)
[2024-05-24] MEDS: LOSARTAN POTASSIUM 50 MG TAB PO SCH (09:20)
[2024-05-24] MEDS: cefTRIAXone 1GM/50ML D5W 50 ML IV SCH (09:21)
[2024-05-24] MEDS: HYDROcodone-ACET 5/325MG TAB PO PRN (10:46)
[2024-05-24] MEDS: SODIUM CHLORIDE 0.9% 1,000 ML IV SCH (11:15)
[2024-05-24] MEDS: ALBUMIN 25% 100 ML IV ONE (15:45)
[2024-05-24] MEDS: NOREPINEPHRINE 8 MG/250ML KIT 0 ML IV ONE (15:56)
[2024-05-24] MEDS: NOREPINEPHRINE 8 MG/250ML KIT 250 ML IV SCH (16:10)
[2024-05-24] MEDS: IRON SUCROSE COMPLEX 100 ML IV SCH (16:18)
[2024-05-24] MEDS: NOREPINEPHRINE 8 MG/250ML KIT 250 ML IV ONE (16:45)
[2024-05-24 17:56] LABS: Basophils # (auto) 0 10 ^3/uL (0-0.2); Basophils % (auto) 0.3 % (0.0-2.0); Eosinophils # (auto) 0 10 ^3/uL (0-0.8); Eosinophils % (auto) 0.2 % (0.0-7.0); Hematocrit 24.7 % (36.0-46.0); Hemoglobin 8.1 g/dL (12.2-16.2); Lymphocytes # (auto) 0.6 10 ^3/uL (0.4-5.4); Lymphocytes % (auto) 7.1 % (10.0-50.0); Mean Corpuscular Hemoglobin 25.3 pg (28.0-32.0); Mean Corpuscular Hgb Conc. 32.7 g/dL (32.0-36.0); Mean Corpuscular Volume 77.5 fL (80.0-100.0); Monocytes # (auto) 0.8 10 ^3/uL (0-1.3); Monocytes % (auto) 8.9 % (0.0-12.0); Neutrophils # (auto) 7.4 10 ^3/uL (1.6-8.6); Neutrophils % (auto) 83.5 % (37.0-80.0); Nucleated Red Blood Cells % 0.1 %; Red Blood Cells 3.18 10^6/uL (4.0-5.20); White Blood Cell 8.9 10^3/uL (4.4-10.8)
[2024-05-24 18:04] LABS: Chloride 106 mmol/L (98-107); Potassium 3.6 mmol/L (3.5-5.1); Sodium 137 mmol/L (136-145)
[2024-05-24 18:05] LABS: Anion Gap 9 (5-15); Calcium 8.8 mg/dL (8.5-10.1); Carbon Dioxide 22 mmol/L (20-30)
[2024-05-24 18:10] LABS: BUN/Creatinine Ratio 22.5 (10.0-20.0); Blood Urea Nitrogen 40 mg/dL (9-23); Glucose 107 mg/dL (74-106)
[2024-05-24 18:11] LABS: INR 1.44 (0.9-1.15); Partial Thromboplastin Time 30.5 SEC (24.5-34.5); Prothrombin Time 14.9 sec (9.3-11.8)
[2024-05-24 18:20] LABS: CRP High Sensitivity 19.19 mg/dL (<1.0)
[2024-05-24 18:36] LABS: Erythrocyte Sedimentation Rate 116 mm/hr (0-20)
[2024-05-24] MEDS: ALBUMIN 25% 100 ML IV SCH (22:00)
[2024-05-25] VITALS (40 sets, daily range): BP systolic 97–126; BP diastolic 38–61; PULSE 58–105; RESP 16–37; TEMP 96–100.4; O2SAT 92–99
[2024-05-25 05:31] LABS: Basophils # (auto) 0 10 ^3/uL (0-0.2); Basophils % (auto) 0.4 % (0.0-2.0); Eosinophils # (auto) 0 10 ^3/uL (0-0.8); Eosinophils % (auto) 0.6 % (0.0-7.0); Hematocrit 24.6 % (36.0-46.0); Hemoglobin 7.4 g/dL (12.2-16.2); Lymphocytes # (auto) 0.7 10 ^3/uL (0.4-5.4); Lymphocytes % (auto) 9.3 % (10.0-50.0); Mean Corpuscular Hemoglobin 25.1 pg (28.0-32.0); Mean Corpuscular Hgb Conc. 30.1 g/dL (32.0-36.0); Mean Corpuscular Volume 83.5 fL (80.0-100.0); Monocytes # (auto) 0.6 10 ^3/uL (0-1.3); Monocytes % (auto) 8.9 % (0.0-12.0); Neutrophils # (auto) 5.8 10 ^3/uL (1.6-8.6); Neutrophils % (auto) 80.8 % (37.0-80.0); Nucleated Red Blood Cells % 0.2 %; Red Blood Cells 2.95 10^6/uL (4.0-5.20); White Blood Cell 7.2 10^3/uL (4.4-10.8)
[2024-05-25 05:49] LABS: Chloride 109 mmol/L (98-107); Potassium 3.6 mmol/L (3.5-5.1); Sodium 137 mmol/L (136-145)
[2024-05-25 05:50] LABS: Anion Gap 7 (5-15); Calcium 8.5 mg/dL (8.7-10.4); Carbon Dioxide 21 mmol/L (20-30)
[2024-05-25 05:55] LABS: BUN/Creatinine Ratio 25.4 (10.0-20.0); Blood Urea Nitrogen 34 mg/dL (9-23); Glucose 86 mg/dL (74-106)
[2024-05-25 09:10] LABS: Hepatitis B Surface Antigen Negative (Negative)
[2024-05-25 09:30] LABS: Hepatitis C Antibody Negative (Negative)
[2024-05-26] VITALS (10 sets, daily range): BP systolic 101–129; BP diastolic 34–54; PULSE 76–105; RESP 18–22; TEMP 97.7–99.9; O2SAT 93–97
[2024-05-26 03:12] LABS: Urine Bacteria None Seen /hpf (None Seen)
[2024-05-26 03:39] LABS: Urine Blood 1+ /uL (Negative); Urine Clarity Turbid (Clear); Urine Color Yellow (Yellow); Urine Protein, UAD TRACE (Negative); Urine Specific Gravity 1.017 (1.001-1.035); Urine Urobilinogen 8 mg/dL (Negative); Urine WBC 5 /hpf (0 - 5); Urine pH 5.5 (5.0-9.0)
[2024-05-26 03:42] LABS: Creatinine, Urine 97.53 mg/dL (30.0-125.0)
[2024-05-26 07:38] LABS: Basophils # (auto) 0 10 ^3/uL (0-0.2); Eosinophils # (auto) 0 10 ^3/uL (0-0.8); Eosinophils % (auto) 0.2 % (0.0-7.0); Hemoglobin 7.2 g/dL (12.2-16.2); Lymphocytes # (auto) 0.4 10 ^3/uL (0.4-5.4); Monocytes # (auto) 0.6 10 ^3/uL (0-1.3)
[2024-05-26 07:40] LABS: Basophils % (auto) 0.4 % (0.0-2.0); Hematocrit 21.7 % (36.0-46.0); Lymphocytes % (auto) 6.5 % (10.0-50.0); Mean Corpuscular Hgb Conc. 33.4 g/dL (32.0-36.0); Mean Corpuscular Volume 77.8 fL (80.0-100.0); Neutrophils # (auto) 5.5 10 ^3/uL (1.6-8.6); Neutrophils % (auto) 83.9 % (37.0-80.0); Nucleated Red Blood Cells % 0.1 %; Red Blood Cells 2.79 10^6/uL (4.0-5.20); Red Cell Distribution Width 18.5 % (11.8-14.3); White Blood Cell 6.6 10^3/uL (4.4-10.8)
[2024-05-26 07:48] LABS: Anion Gap 8 (5-15); Calcium 8.5 mg/dL (8.7-10.4); Carbon Dioxide 20 mmol/L (20-30); Chloride 111 mmol/L (98-107); Potassium 3.4 mmol/L (3.5-5.1); Sodium 139 mmol/L (136-145)
[2024-05-26 07:53] LABS: Glucose 87 mg/dL (74-106)
[2024-05-26 07:54] LABS: Blood Urea Nitrogen 26 mg/dL (9-23)
[2024-05-26] MEDS: POTASSIUM CHL 20 Meq TABLET PO ONE (11:24)
[2024-05-27] VITALS (8 sets, daily range): BP systolic 110–167; BP diastolic 47–61; PULSE 87–114; RESP 16–19; TEMP 98.1–101.6; O2SAT 93–97
[2024-05-27 06:21] LABS: Basophils # (auto) 0 10 ^3/uL (0-0.2); Basophils % (auto) 0.4 % (0.0-2.0); Eosinophils # (auto) 0 10 ^3/uL (0-0.8); Eosinophils % (auto) 0.1 % (0.0-7.0); Hematocrit 24.2 % (36.0-46.0); Hemoglobin 8.3 g/dL (12.2-16.2); Lymphocytes # (auto) 0.6 10 ^3/uL (0.4-5.4); Lymphocytes % (auto) 5.8 % (10.0-50.0); Mean Corpuscular Hemoglobin 26.9 pg (28.0-32.0); Mean Corpuscular Hgb Conc. 34.4 g/dL (32.0-36.0); Mean Corpuscular Volume 78.1 fL (80.0-100.0); Monocytes # (auto) 0.7 10 ^3/uL (0-1.3); Monocytes % (auto) 7.2 % (0.0-12.0); Neutrophils # (auto) 8.8 10 ^3/uL (1.6-8.6); Neutrophils % (auto) 86.5 % (37.0-80.0); Nucleated Red Blood Cells % 0.2 %; Red Cell Distribution Width 18.5 % (11.8-14.3); White Blood Cell 10.2 10^3/uL (4.4-10.8)
[2024-05-27 06:24] LABS: Calcium 8.5 mg/dL (8.5-10.1); Chloride 111 mmol/L (98-107); Potassium 3.8 mmol/L (3.5-5.1); Sodium 140 mmol/L (136-145)
[2024-05-27 06:25] LABS: Anion Gap 7 (5-15); Carbon Dioxide 22 mmol/L (20-30)
[2024-05-27 06:30] LABS: BUN/Creatinine Ratio 22.4 (10.0-20.0); Blood Urea Nitrogen 19 mg/dL (9-23); Glucose 93 mg/dL (74-106)
[2024-05-28] VITALS (8 sets, daily range): BP systolic 92–163; BP diastolic 45–89; PULSE 74–107; RESP 17–20; TEMP 97.7–98.6; O2SAT 94–98
[2024-05-28 08:02] LABS: Basophils # (auto) 0.1 10 ^3/uL (0-0.2); Eosinophils # (auto) 0 10 ^3/uL (0-0.8); Eosinophils % (auto) 0.1 % (0.0-7.0); Hemoglobin 8.2 g/dL (12.2-16.2); Lymphocytes # (auto) 0.5 10 ^3/uL (0.4-5.4); Lymphocytes % (auto) 3.7 % (10.0-50.0); Monocytes # (auto) 0.8 10 ^3/uL (0-1.3)
[2024-05-28 08:03] LABS: Basophils % (auto) 0.4 % (0.0-2.0); Mean Corpuscular Hgb Conc. 32.8 g/dL (32.0-36.0); Mean Corpuscular Volume 79.3 fL (80.0-100.0); Monocytes % (auto) 5.5 % (0.0-12.0); Neutrophils % (auto) 90.3 % (37.0-80.0); Red Blood Cells 3.16 10^6/uL (4.0-5.20); White Blood Cell 14.4 10^3/uL (4.4-10.8)
[2024-05-28 08:07] LABS: Chloride 112 mmol/L (98-107); Potassium 3.8 mmol/L (3.5-5.1); Sodium 140 mmol/L (136-145)
[2024-05-28 08:08] LABS: Anion Gap 6 (5-15); Calcium 8.7 mg/dL (8.5-10.1); Carbon Dioxide 22 mmol/L (20-30)
[2024-05-28 08:13] LABS: BUN/Creatinine Ratio 21.6 (10.0-20.0); Blood Urea Nitrogen 19 mg/dL (9-23); Glucose 91 mg/dL (74-106); Magnesium 1.3 mg/dL (1.6-2.6)
[2024-05-28] MEDS: MAGNESIUM SULFATE 1GM/100ML 100 ML IV ONE (15:24)
[2024-05-29] VITALS (7 sets, daily range): BP systolic 98–136; BP diastolic 44–59; PULSE 87–97; RESP 17–20; TEMP 98–98.6; O2SAT 91–97
[2024-05-29 06:13] LABS: Basophils # (auto) 0 10 ^3/uL (0-0.2); Hemoglobin 7.8 g/dL (12.2-16.2); Lymphocytes # (auto) 0.6 10 ^3/uL (0.4-5.4); Monocytes # (auto) 0.7 10 ^3/uL (0-1.3)
[2024-05-29 06:15] LABS: Basophils % (auto) 0.5 % (0.0-2.0); Eosinophils # (auto) 0 10 ^3/uL (0-0.8); Eosinophils % (auto) 0.4 % (0.0-7.0); Hematocrit 23.3 % (36.0-46.0); Lymphocytes % (auto) 5.8 % (10.0-50.0); Mean Corpuscular Hemoglobin 26.3 pg (28.0-32.0); Mean Corpuscular Hgb Conc. 33.4 g/dL (32.0-36.0); Mean Corpuscular Volume 78.7 fL (80.0-100.0); Monocytes % (auto) 7.5 % (0.0-12.0); Neutrophils # (auto) 8.4 10 ^3/uL (1.6-8.6); Neutrophils % (auto) 85.8 % (37.0-80.0); Nucleated Red Blood Cells % 0.1 %; Red Blood Cells 2.96 10^6/uL (4.0-5.20); Red Cell Distribution Width 19.2 % (11.8-14.3); White Blood Cell 9.8 10^3/uL (4.4-10.8)
[2024-05-29 06:25] LABS: Anion Gap 9 (5-15); Calcium 8.8 mg/dL (8.5-10.1); Carbon Dioxide 19 mmol/L (20-30); Chloride 110 mmol/L (98-107); Potassium 3.7 mmol/L (3.5-5.1); Sodium 138 mmol/L (136-145)
[2024-05-29 06:31] LABS: BUN/Creatinine Ratio 26.3 (10.0-20.0); Blood Urea Nitrogen 20 mg/dL (9-23); Glucose 100 mg/dL (74-106)
[2024-05-29] MEDS: BUPIVACAINE 0.25% INJ 50ML VIAL IJ ONE (15:18)
[2024-05-29] MEDS ORDERED: FLUMAZENIL 0.1 MG/ML INJ 10ML MDV IV PRN (15:45)
[2024-05-29] MEDS ORDERED: ePHEDrine SULFATE 50 MG/ML AMP IV PRN (15:45)
[2024-05-29] MEDS ORDERED: LABETALOL HCL 5 MG/ML 4ML SYRINGE IV PRN (15:45)
[2024-05-29] MEDS ORDERED: fentaNYL CITRATE 100 MCG/2 ML VL IV PRN (15:45)
[2024-05-29] MEDS ORDERED: hydrALAZINE HCL 20 MG/ML VL IV PRN (15:45)
[2024-05-29] MEDS ORDERED: HYDROmorphone HCL 2 MG/ML VL/or syr IV PRN (15:45)
[2024-05-29] MEDS ORDERED: ONDANSETRON HCL 4 MG/2 ML VIAL IV PRN (15:45)
[2024-05-29] MEDS ORDERED: NALOXONE HCL 0.4 MG/ML VIAL IV PRN (15:45)
[2024-05-29] MEDS ORDERED: AUG875T PO (17:33)
== END 2024-05-29 20:30 | disposition home or self-care (01) | DRG 853 ==
LOC: ER 13:01 → TELE 19:01 → TELE-CENTR 22:15 → DOU IN ICU 05-24 18:39 → ICU CENTRL 05-24 18:53 → DOU IN ICU 05-25 06:05 → TELE-WESTW 05-25 15:07
PROVIDERS: ADMIT Internal Medicine Geriatric Medicine; ATTEND Internal Medicine Geriatric Medicine
PROC: 30233N1 Transfusion of Nonautologous Red Blood Cells into Peripheral Vein, Percutaneous Approach (ICD-10-PCS; 2024-05-24)
PROC: 07BH0ZZ Excision of Right Inguinal Lymphatic, Open Approach (ICD-10-PCS; principal; 2024-05-29 14:25)
DX: A41.9 Sepsis, unspecified organism (principal); N17.0 Acute kidney failure with tubular necrosis; R65.21 Severe sepsis with septic shock; D62 Acute posthemorrhagic anemia; N39.0 Urinary tract infection, site not specified; Z68.1 Body mass index [BMI] 19.9 or less, adult; C85.10 Unspecified B-cell lymphoma, unspecified site; E86.0 Dehydration; R62.7 Adult failure to thrive; D50.9 Iron deficiency anemia, unspecified; N18.9 Chronic kidney disease, unspecified; E66.01 Morbid (severe) obesity due to excess calories; R59.1 Generalized enlarged lymph nodes; R55 Syncope and collapse; I12.9 Hypertensive chronic kidney disease with stage 1 through stage 4 chronic kidney disease, or unspecified chronic kidney disease; Z88.1 Allergy status to other antibiotic agents; Z88.6 Allergy status to analgesic agent; Z88.0 Allergy status to penicillin; Z82.49 Family history of ischemic heart disease and other diseases of the circulatory system; Z98.51 Tubal ligation status; Z83.3 Family history of diabetes mellitus
CPT/HCPCS: 36415; 80048; 80053; 81001; 82533; 82570; 82962; 83615; 83735; 83935; 84300; 84443; 85014; 85018; 85025; 85610; 85652; 85730; 86141; 86803; 86850; 86900; 86901; 86920; 87040; 87081; 87340; 93306; 93886; 97110; 97116; 97163; 97530; G0378; J1756; J2405; J3490; P9047

== ENCOUNTER 2024-06-07 03:12 | Inpatient (IN) | payer OTHER ==
[2024-06-07] VITALS (12 sets, daily range): BP systolic 116–140; BP diastolic 45–57; PULSE 96–118; RESP 19–31; TEMP 97.3–98.7; O2SAT 96–98
[~2024-06-07] VITALS: Ht 162.6 cm; Wt 104.0 kg
[~2024-06-07 03:12] MED LIST changes: +AUG875T PO; -CEPH250C PO; +CIPR1SUS8 RIGHT EAR; +CLOT1SOL6 RIGHT EAR
[2024-06-07 03:52] LABS: Basophils # (auto) 0 10 ^3/uL (0-0.2); Basophils % (auto) 0.2 % (0.0-2.0); Eosinophils # (auto) 0 10 ^3/uL (0-0.8); Mean Corpuscular Hgb Conc. 33.4 g/dL (32.0-36.0); Monocytes # (auto) 1.1 10 ^3/uL (0-1.3)
[2024-06-07 03:55] LABS: Hematocrit 20.4 % (36.0-46.0); Lymphocytes # (auto) 0.7 10 ^3/uL (0.4-5.4); Lymphocytes % (auto) 5.2 % (10.0-50.0); Mean Corpuscular Hemoglobin 26.1 pg (28.0-32.0); Monocytes % (auto) 8.7 % (0.0-12.0); Neutrophils # (auto) 11.3 10 ^3/uL (1.6-8.6); Neutrophils % (auto) 85.9 % (37.0-80.0); Red Blood Cells 2.61 10^6/uL (4.0-5.20); Red Cell Distribution Width 19.7 % (11.8-14.3); White Blood Cell 13.2 10^3/uL (4.4-10.8)
[2024-06-07 04:12] LABS: Alanine Aminotransferase 13 U/L (7-40); Albumin 2.9 g/dL (3.2-4.8); Alkaline Phosphatase 159 U/L (46-116); Anion Gap 9 (5-15); Aspartate Aminotransferase 23 U/L (13-40); BUN/Creatinine Ratio 16.3 (10.0-20.0); Blood Urea Nitrogen 16 mg/dL (9-23); Calcium 8.9 mg/dL (8.7-10.4); Carbon Dioxide 26 mmol/L (20-30); Chloride 100 mmol/L (98-107); Glucose 99 mg/dL (74-106); Lipase 43 U/L (12-53); Potassium 2.8 mmol/L (3.5-5.1); Sodium 135 mmol/L (136-145)
[2024-06-07 04:13] LABS: Bilirubin, Total 2.9 mg/dL (0.2-1.0); Total Protein 5.8 g/dL (5.7-8.2)
[2024-06-07 04:17] LABS: Hemoglobin 6.8 g/dL (12.2-16.2)
[2024-06-07 04:40] LABS: Lactic Acid w/Reflex 2.5 mmol/L (0.4-2.0)
[2024-06-07] MEDS ORDERED: ONDANSETRON HCL 4 MG/2 ML VIAL IV PRN (06:45)
[2024-06-07 06:46] LABS: Urine Bacteria FEW /hpf (None Seen); Urine Blood 1+ /uL (Negative); Urine Clarity Turbid (Clear); Urine Color Yellow (Yellow); Urine Hyaline Cast FEW /lpf (0 - 2); Urine Mucus FEW (None Seen); Urine Protein, UAD 1+ (Negative); Urine Specific Gravity 1.047 (1.001-1.035); Urine Urobilinogen 6 mg/dL (Negative); Urine WBC 15 /hpf (0 - 5); Urine pH 5.5 (5.0-9.0)
[2024-06-07] MEDS: POTASSIUM CHL 20 Meq TABLET PO ONE (07:06)
[2024-06-07] MEDS: FERROUS SULFATE 325mg EC TAB PO SCH (08:12)
[2024-06-07] MEDS: cefTRIAXone 1GM/50ML D5W 50 ML IV SCH (09:00)
[2024-06-07] MEDS: SODIUM CHLORIDE 0.9% 1,000 ML IV SCH (10:21)
[2024-06-07] MEDS: LOSARTAN POTASSIUM 50 MG TAB PO SCH (10:23)
[2024-06-07] MEDS: hydroCHLOROthiazide 25 MG TAB PO SCH (10:23)
[2024-06-07 10:30] LABS: Amphetamine Screen, Urine Neg (NEGATIVE)
[2024-06-07 10:33] LABS: Barbiturate Scree,Urine Neg (NEGATIVE); Benzodiazephine Screen, Urine Neg (NEGATIVE); Cocaine Screen, Urine Neg (NEGATIVE)
[2024-06-07 10:34] LABS: Cannabinoid Screen, Urine Neg (NEGATIVE); Opiate Scree,Urine Neg (NEGATIVE); Phencyclidine Screen, Urine Neg (NEGATIVE)
[2024-06-07 11:12] LABS: % Iron Saturation 15.1 % (15-50)
[2024-06-07 11:45] LABS: Ferritin > 3300.0 ng/mL (10-291)
[2024-06-07 13:42] LABS: Basophils # (auto) 0 10 ^3/uL (0-0.2); Eosinophils # (auto) 0 10 ^3/uL (0-0.8); Lymphocytes # (auto) 0.7 10 ^3/uL (0.4-5.4); Mean Corpuscular Volume 78.9 fL (80.0-100.0)
[2024-06-07 13:46] LABS: Basophils % (auto) 0.3 % (0.0-2.0); Eosinophils % (auto) 0.1 % (0.0-7.0); Hematocrit 20.3 % (36.0-46.0); Lymphocytes % (auto) 5.7 % (10.0-50.0); Mean Corpuscular Hemoglobin 25.9 pg (28.0-32.0); Mean Corpuscular Hgb Conc. 32.8 g/dL (32.0-36.0); Monocytes % (auto) 8.1 % (0.0-12.0); Neutrophils # (auto) 10.3 10 ^3/uL (1.6-8.6); Neutrophils % (auto) 85.8 % (37.0-80.0); Nucleated Red Blood Cells % 0.1 %; Red Blood Cells 2.57 10^6/uL (4.0-5.20)
[2024-06-07 13:49] LABS: Hemoglobin 6.6 g/dL (12.2-16.2)
[2024-06-07 14:00] LABS: Alanine Aminotransferase 12 U/L (7-40); Albumin 2.6 g/dL (3.2-4.8); Alkaline Phosphatase 146 U/L (46-116); Anion Gap 7 (5-15); Aspartate Aminotransferase 25 U/L (13-40); BUN/Creatinine Ratio 17.9 (10.0-20.0); Blood Urea Nitrogen 14 mg/dL (9-23); Calcium 8.5 mg/dL (8.5-10.1); Carbon Dioxide 26 mmol/L (20-30); Chloride 102 mmol/L (98-107); Cholesterol 109 mg/dL (< 200); Glucose 98 mg/dL (74-106); LDL Cholesterol 51 mg/dL (< 100); Magnesium 1.5 mg/dL (1.6-2.6); Potassium 3.1 mmol/L (3.5-5.1); Sodium 135 mmol/L (136-145); Triglycerides 182 mg/dL (< 150)
[2024-06-07 14:01] LABS: Bilirubin, Total 2.6 mg/dL (0.2-1.0); HDL Cholesterol < 5 mg/dL (40-59); Phosphorus 3.4 mg/dL (2.4-5.1)
[2024-06-07] MEDS: IRON SUCROSE COMPLEX 100 ML IV SCH (14:20)
[2024-06-07 14:50] LABS: INR 1.41 (0.9-1.15); Partial Thromboplastin Time 24.6 SEC (24.5-34.5); Prothrombin Time 14.6 sec (9.3-11.8)
[2024-06-07] MEDS: MAGNESIUM SULFATE 1GM/100ML 100 ML IV ONE (18:40)
[2024-06-07] MEDS: POTASSIUM CHL 20MEQ/100ML 100 ML IV SCH (20:29)
[2024-06-08] VITALS (8 sets, daily range): BP systolic 104–148; BP diastolic 46–69; PULSE 78–117; RESP 14–20; TEMP 97.6–100.4; O2SAT 92–98
[2024-06-08 06:53] LABS: Basophils # (auto) 0 10 ^3/uL (0-0.2); Eosinophils # (auto) 0 10 ^3/uL (0-0.8); Eosinophils % (auto) 0.1 % (0.0-7.0); Lymphocytes # (auto) 0.6 10 ^3/uL (0.4-5.4); White Blood Cell 11.6 10^3/uL (4.4-10.8)
[2024-06-08 06:56] LABS: Basophils % (auto) 0.1 % (0.0-2.0); Hematocrit 23.9 % (36.0-46.0); Hemoglobin 7.9 g/dL (12.2-16.2); Lymphocytes % (auto) 4.8 % (10.0-50.0); Mean Corpuscular Hemoglobin 26.2 pg (28.0-32.0); Mean Corpuscular Hgb Conc. 33.2 g/dL (32.0-36.0); Monocytes # (auto) 0.8 10 ^3/uL (0-1.3); Monocytes % (auto) 6.5 % (0.0-12.0); Neutrophils # (auto) 10.3 10 ^3/uL (1.6-8.6); Neutrophils % (auto) 88.5 % (37.0-80.0); Red Blood Cells 3.02 10^6/uL (4.0-5.20)
[2024-06-08 06:59] LABS: Albumin 2.5 g/dL (3.2-4.8); Alkaline Phosphatase 157 U/L (46-116); Anion Gap 7 (5-15); Aspartate Aminotransferase 25 U/L (13-40); BUN/Creatinine Ratio 16.4 (10.0-20.0); Blood Urea Nitrogen 11 mg/dL (9-23); Calcium 8.5 mg/dL (8.7-10.4); Carbon Dioxide 25 mmol/L (20-30); Chloride 105 mmol/L (98-107); Glucose 81 mg/dL (74-106); Potassium 3.4 mmol/L (3.5-5.1); Sodium 137 mmol/L (136-145); Uric Acid 3.1 mg/dL (3.1-7.8)
[2024-06-08 07:00] LABS: Bilirubin, Total 2.4 mg/dL (0.2-1.0)
[2024-06-08 07:02] LABS: Alanine Aminotransferase 9 U/L (7-40)
[2024-06-08] MEDS ORDERED: VANCOMYCIN PER PHARMACY 0 MG IV SCH (08:15)
[2024-06-08 10:13] LABS: Base Excess 2.9 mmol/L (-2.0-2.0)
[2024-06-08] MEDS: VANCOMYCIN 1GM/200ML 200 ML IV ONE (11:06)
[2024-06-08] MEDS: POTASSIUM CHL 20MEQ/100ML 100 ML IV SCH (11:06)
[2024-06-08] MEDS ORDERED: [UNRECOGNIZED DRUG - CODE] (15:21)
[2024-06-08] MEDS ORDERED: CHOL20006 PO (15:21)
[2024-06-08] MEDS ORDERED: CELE200C PO (15:21)
[2024-06-08] MEDS ORDERED: FERR-7 PO (15:21)
[2024-06-08] MEDS ORDERED: CYCL-839 PO (15:21)
[2024-06-08] MEDS ORDERED: LOSA100T33 PO (15:22)
[2024-06-08 16:30] LABS: Base Excess 0.1 mmol/L (-2.0-2.0)
[2024-06-08] MEDS: ACETAMINOPHEN 325 MG TAB PO PRN (18:02)
[2024-06-09] VITALS (11 sets, daily range): BP systolic 110–122; BP diastolic 44–62; PULSE 63–107; RESP 17–19; TEMP 97.6–99.1; O2SAT 95–98
[2024-06-09] MEDS: VANCOMYCIN 1GM/200ML 200 ML IV SCH (01:00)
[2024-06-09] MEDS: PANTOPRAZOLE 40 MG TAB PO ONE (07:30)
[2024-06-09 09:08] LABS: Hematocrit 23.8 % (36.0-46.0); Hemoglobin 7.8 g/dL (12.2-16.2); Mean Corpuscular Hgb Conc. 32.9 g/dL (32.0-36.0); Mean Corpuscular Volume 79.2 fL (80.0-100.0); Red Blood Cells 3.01 10^6/uL (4.0-5.20); Red Cell Distribution Width 18.3 % (11.8-14.3); White Blood Cell 13.4 10^3/uL (4.4-10.8)
[2024-06-09 09:13] LABS: Basophils % (manual) 0 (0.0-2.0); Blast Cells 0; Eosinophils % (manual) 0 (0-7); Metamyelocytes % 0; Myelocytes % 0; Promyelocytes % 0; Reactive Lymphocytes 0
[2024-06-09 09:19] LABS: Alkaline Phosphatase 158 U/L (46-116); Anion Gap 6 (5-15); Aspartate Aminotransferase 19 U/L (13-40); Blood Urea Nitrogen 18 mg/dL (9-23); Calcium 8.5 mg/dL (8.5-10.1); Carbon Dioxide 27 mmol/L (20-30); Chloride 107 mmol/L (98-107); Glucose 80 mg/dL (74-106); Magnesium 1.6 mg/dL (1.6-2.6); Potassium 3.3 mmol/L (3.5-5.1); Sodium 140 mmol/L (136-145)
[2024-06-09 09:20] LABS: Albumin 2.4 g/dL (3.2-4.8); Bilirubin, Total 2.2 mg/dL (0.2-1.0); Phosphorus 3.9 mg/dL (2.4-5.1); Total Protein 4.7 g/dL (5.7-8.2)
[2024-06-09 09:22] LABS: Alanine Aminotransferase < 9 U/L (7-40)
[2024-06-09 09:46] LABS: Band Neutrophils % (manual) 1; Lymphocytes % (manual) 4 (10.0-50.0); Monocytes % (manual) 6 (0-12)
[2024-06-09 09:47] LABS: Anisocytosis Slight; Hypochromia Slight; Platelet Estimate Adequate
[2024-06-09] MEDS: HEPARIN SODIUM (PORCINE) 5000 UNITS/ML 1ML VIAL ONE (09:50)
[2024-06-09] MEDS: MIDAZOLAM HCL 2MG/2ML 2ml VIAL (1mg/ml) ONE (09:51)
[2024-06-09] MEDS: fentaNYL CITRATE 100 MCG/2 ML VL ONE (09:51)
[2024-06-09] MEDS: LIDOCAINE 2%HCL (LOCAL ANESTH.) INJ 20ML MDV ONE (10:01)
[2024-06-09] MEDS: CLINDAMYCIN 600MG IV 50 ML IV ONE (10:15)
[2024-06-09] MEDS: LIDOCAINE W/ EPINEPHRINE 2% INJ 20ML VIAL ONE (10:24)
[2024-06-09 11:29] LABS: Folate (Folic Acid) 6.41 ng/mL (>5.38)
[2024-06-09] MEDS: POTASSIUM CHL 20 Meq TABLET PO ONE (14:15)
[2024-06-10 01:00] VITALS: BP 120/58; PULSE 107; RESP 18; TEMP 98.9; O2SAT 94
[2024-06-10 01:21] VITALS: BP 128/52; PULSE 115; RESP 18; TEMP 98.4; O2SAT 89
[2024-06-10 04:47] VITALS: BP 125/54; PULSE 110; RESP 15; TEMP 99; O2SAT 92
[2024-06-10 07:41] LABS: Basophils # (auto) 0 10 ^3/uL (0-0.2); Basophils % (auto) 0.4 % (0.0-2.0); Eosinophils # (auto) 0 10 ^3/uL (0-0.8); Hemoglobin 7.4 g/dL (12.2-16.2); Lymphocytes # (auto) 0.5 10 ^3/uL (0.4-5.4); Monocytes # (auto) 0.4 10 ^3/uL (0-1.3)
[2024-06-10 07:42] LABS: Eosinophils % (auto) 0.2 % (0.0-7.0); Hematocrit 21.8 % (36.0-46.0); Mean Corpuscular Hemoglobin 26.8 pg (28.0-32.0); Mean Corpuscular Hgb Conc. 33.9 g/dL (32.0-36.0); Monocytes % (auto) 5.2 % (0.0-12.0); Neutrophils # (auto) 7.5 10 ^3/uL (1.6-8.6); Neutrophils % (auto) 88.2 % (37.0-80.0); Red Blood Cells 2.75 10^6/uL (4.0-5.20); Red Cell Distribution Width 18.1 % (11.8-14.3); White Blood Cell 8.5 10^3/uL (4.4-10.8)
[2024-06-10 07:52] LABS: INR 1.37 (0.9-1.15); Partial Thromboplastin Time 30.4 SEC (24.5-34.5); Prothrombin Time 14.2 sec (9.3-11.8)
[2024-06-10 07:59] LABS: Albumin 2.4 g/dL (3.2-4.8); Alkaline Phosphatase 161 U/L (46-116); Anion Gap 6 (5-15); Aspartate Aminotransferase 21 U/L (13-40); Calcium 8.6 mg/dL (8.7-10.4); Carbon Dioxide 24 mmol/L (20-30); Chloride 108 mmol/L (98-107); Glucose 81 mg/dL (74-106); Magnesium 1.6 mg/dL (1.6-2.6); Potassium 3.7 mmol/L (3.5-5.1); Sodium 138 mmol/L (136-145)
[2024-06-10 08:00] LABS: Bilirubin, Total 1.7 mg/dL (0.2-1.0); Phosphorus 3.1 mg/dL (2.4-5.1); Total Protein 4.8 g/dL (5.7-8.2)
[2024-06-10] MEDS: PANTOPRAZOLE 40 MG TAB PO SCH (08:05)
[2024-06-10 08:08] LABS: Alanine Aminotransferase < 9 U/L (7-40)
[2024-06-10 08:46] LABS: BUN/Creatinine Ratio 26.8 (10.0-20.0); Blood Urea Nitrogen 15 mg/dL (9-23)
[2024-06-10 09:00] VITALS: BP 132/54; PULSE 107; RESP 18; TEMP 99.6; O2SAT 97
[2024-06-10] MEDS ORDERED: PANT40T PO (13:56)
[2024-06-10] MEDS ORDERED: ACET-1882 PO (13:56)
[2024-06-10] MEDS ORDERED: FLUC100T34 PO (13:56)
[2024-06-10] MEDS: FLUCONAZOLE 100 MG TAB PO ONE (14:32)
[2024-06-10 16:39] VITALS: BP 147/70; PULSE 121; RESP 18; TEMP 98; O2SAT 97
[2024-06-10 17:21] VITALS: BP 132/54; TEMP 36.7
[2024-06-11] MEDS ORDERED: FLUCONAZOLE 100 MG TAB PO SCH (10:00)
== END 2024-06-10 18:00 | disposition home health service (06) | DRG 871 ==
LOC: ER 03:12 → OVERFLOW 06:49 → WEST WING 21:33
PROVIDERS: ADMIT Internal Medicine; ATTEND Internal Medicine
PROC: 30233N1 Transfusion of Nonautologous Red Blood Cells into Peripheral Vein, Percutaneous Approach (ICD-10-PCS; principal; 2024-06-07)
PROC: 0JH63WZ Insertion of Totally Implantable Vascular Access Device into Chest Subcutaneous Tissue and Fascia, Percutaneous Approach (ICD-10-PCS; 2024-06-09)
PROC: 02HV33Z Insertion of Infusion Device into Superior Vena Cava, Percutaneous Approach (ICD-10-PCS; 2024-06-09)
PROC: B5181ZA Fluoroscopy of Superior Vena Cava using Low Osmolar Contrast, Guidance (ICD-10-PCS; 2024-06-09)
PROC: B548ZZA Ultrasonography of Superior Vena Cava, Guidance (ICD-10-PCS; 2024-06-09)
DX: A41.9 Sepsis, unspecified organism (principal); G93.41 Metabolic encephalopathy; J96.01 Acute respiratory failure with hypoxia; D61.818 Other pancytopenia; G93.1 Anoxic brain damage, not elsewhere classified; B37.89 Other sites of candidiasis; C83.35 Diffuse large B-cell lymphoma, lymph nodes of inguinal region and lower limb; D50.9 Iron deficiency anemia, unspecified; E66.9 Obesity, unspecified; E87.6 Hypokalemia; I10 Essential (primary) hypertension; K76.0 Fatty (change of) liver, not elsewhere classified; K76.82 Hepatic encephalopathy; E11.9 Type 2 diabetes mellitus without complications; Z82.49 Family history of ischemic heart disease and other diseases of the circulatory system; Z88.0 Allergy status to penicillin; Z88.1 Allergy status to other antibiotic agents; Z83.3 Family history of diabetes mellitus; Z68.39 Body mass index [BMI] 39.0-39.9, adult; Z79.4 Long term (current) use of insulin
CPT/HCPCS: 36415; 36558; 36600; 70450; 71045; 74177; 76830; 76856; 77001; 80053; 80061; 80202; 80307; 81001; 82140; 82270; 82306; 82607; 82728; 82746; 82805; 82962; 83010; 83036; 83540; 83550; 83605; 83615; 83690; 83735; 83880; 84100; 84443; 84550; 85007; 85025; 85027; 85045; 85610; 85730; 86850; 86900; 86901; 86920; 87040; 87081; 87086; 87088; 93005; 97162; 97163; 99152; C1894; G0378; J1756; J2250; J3480; J3490

== ENCOUNTER 2024-06-12 20:18 | Inpatient (IN) | payer OTHER ==
[~2024-06-12] VITALS: Ht 172.7 cm; Wt 114.8 kg
[~2024-06-12 20:18] MED LIST changes: +ACET-1882 PO; -AUG875T PO; +CHOL20006 PO; -CIPR1SUS8 RIGHT EAR; +CYCL-839 PO; -FER325T PO; +FERR-7 PO; +FLUC100T34 PO; -HYDR12.59 PO; -LOSA-534 PO; +LOSA100T33 PO; +PANT40T PO; +[UNRECOGNIZED DRUG - CODE]
[2024-06-12] MEDS: LEVALBUTEROL HCL 1.25 MG/3 ML NEB NEB ONE (20:36)
[2024-06-12] MEDS: dilTIAZem 25 MG/5 ML VIAL IV ONE ×2 (20:45→21:18)
[2024-06-12 21:00] VITALS: PULSE 185; RESP 40; O2SAT 98
[2024-06-12 21:07] LABS: Base Excess -1.5 mmol/L (-2.0-2.0)
[2024-06-12] MEDS ORDERED: dilTIAZem 125mg/125ml BAG KIT 125 ML IV SCH (21:30)
[2024-06-12 21:40] LABS: Basophils # (auto) 0 10 ^3/uL (0-0.2); Eosinophils # (auto) 0 10 ^3/uL (0-0.8); Eosinophils % (auto) 0.2 % (0.0-7.0); Hemoglobin 7.6 g/dL (12.2-16.2); Mean Corpuscular Hgb Conc. 33.6 g/dL (32.0-36.0); Monocytes # (auto) 0.5 10 ^3/uL (0-1.3); Neutrophils # (auto) 7.7 10 ^3/uL (1.6-8.6)
[2024-06-12 21:42] LABS: Basophils % (auto) 0.1 % (0.0-2.0); Hematocrit 22.7 % (36.0-46.0); Lymphocytes # (auto) 0.6 10 ^3/uL (0.4-5.4); Lymphocytes % (auto) 6.5 % (10.0-50.0); Mean Corpuscular Hemoglobin 26.9 pg (28.0-32.0); Monocytes % (auto) 5.7 % (0.0-12.0); Neutrophils % (auto) 87.5 % (37.0-80.0); Red Blood Cells 2.83 10^6/uL (4.0-5.20); Red Cell Distribution Width 18.2 % (11.8-14.3); White Blood Cell 8.8 10^3/uL (4.4-10.8)
[2024-06-12 21:53] LABS: Alanine Aminotransferase < 9 U/L (7-40); Albumin 2.6 g/dL (3.2-4.8); Alkaline Phosphatase 135 U/L (46-116); Anion Gap 10 (5-15); Aspartate Aminotransferase 21 U/L (13-40); BUN/Creatinine Ratio 33.3 (10.0-20.0); Bilirubin, Total 2.1 mg/dL (0.2-1.0); Blood Urea Nitrogen 26 mg/dL (9-23); Calcium 9.4 mg/dL (8.7-10.4); Carbon Dioxide 22 mmol/L (20-30); Chloride 105 mmol/L (98-107); Glucose 109 mg/dL (74-106); Potassium 3.4 mmol/L (3.5-5.1); Sodium 137 mmol/L (136-145); Total Protein 5.2 g/dL (5.7-8.2)
[2024-06-12] MEDS: METOPROLOL TARTRATE 1MG/1ML-5ML VIAL IV ONE (21:56)
[2024-06-12] MEDS: dilTIAZem 125mg/125ml BAG KIT 125 ML IV ONE (21:57)
[2024-06-12] MEDS ORDERED: ALBUTEROL SULF 2.5 MG/0.5ML(0.5%) NEB SOLN NEB PRN (22:15)
[2024-06-12] MEDS ORDERED: NITROGLYCERIN 0.4 MG SL TAB SL PRN (22:15)
[2024-06-12] MEDS ORDERED: ONDANSETRON HCL 4 MG/2 ML VIAL IV PRN (22:15)
[2024-06-12] MEDS ORDERED: MORPHINE SULFATE INJ 2 MG/ml SYRG IV PRN (22:15)
[2024-06-12] MEDS ORDERED: ACETAMINOPHEN 325 MG TAB PO PRN (22:15)
[2024-06-12] MEDS: ALBUMIN 5% 250 ML IV ONE (22:15)
[2024-06-12] MEDS: DIGOXIN (250MCG/ML) 2 ML AMPULE IV ONE (22:15)
[2024-06-12] MEDS: POTASSIUM CHL 20 Meq TABLET PO ONE (22:15)
[2024-06-12 22:49] LABS: INR 1.51 (0.9-1.15); Partial Thromboplastin Time 29.8 SEC (24.5-34.5); Prothrombin Time 15.5 sec (9.3-11.8)
[2024-06-12 23:02] VITALS: BP 134/74; PULSE 160; RESP 24; TEMP 98.8; O2SAT 99
[2024-06-13] VITALS (11 sets, daily range): BP systolic 101–113; BP diastolic 47–64; PULSE 114–140; RESP 16–22; TEMP 98.2–98.6; O2SAT 96–99
[2024-06-13] MEDS: AMIODARONE BOLUS KIT 100 ML IV ONE (00:15)
[2024-06-13] MEDS: AMIODARONE 450mg/250ml AE 250 ML IV SCH ×2 (00:42→08:42)
[2024-06-13 04:53] LABS: Anion Gap 9 (5-15); Carbon Dioxide 23 mmol/L (20-30); Chloride 106 mmol/L (98-107); Potassium 3.7 mmol/L (3.5-5.1); Sodium 138 mmol/L (136-145)
[2024-06-13 04:54] LABS: Calcium 9.3 mg/dL (8.7-10.4)
[2024-06-13 04:59] LABS: BUN/Creatinine Ratio 31.4 (10.0-20.0); Blood Urea Nitrogen 27 mg/dL (9-23); Glucose 120 mg/dL (74-106)
[2024-06-13 05:03] LABS: Urine Bacteria None Seen /hpf (None Seen)
[2024-06-13 05:05] LABS: Basophils # (auto) 0 10 ^3/uL (0-0.2); Basophils % (auto) 0.2 % (0.0-2.0); Eosinophils # (auto) 0 10 ^3/uL (0-0.8); Eosinophils % (auto) 0.2 % (0.0-7.0); Mean Corpuscular Volume 80.2 fL (80.0-100.0); Neutrophils # (auto) 6.6 10 ^3/uL (1.6-8.6); White Blood Cell 7.6 10^3/uL (4.4-10.8)
[2024-06-13 05:09] LABS: Hematocrit 20.2 % (36.0-46.0); Lymphocytes # (auto) 0.5 10 ^3/uL (0.4-5.4); Lymphocytes % (auto) 6.3 % (10.0-50.0); Mean Corpuscular Hemoglobin 26.9 pg (28.0-32.0); Mean Corpuscular Hgb Conc. 33.5 g/dL (32.0-36.0); Monocytes # (auto) 0.6 10 ^3/uL (0-1.3); Monocytes % (auto) 7.4 % (0.0-12.0); Neutrophils % (auto) 85.9 % (37.0-80.0); Nucleated Red Blood Cells % 0.1 %; Red Blood Cells 2.52 10^6/uL (4.0-5.20); Red Cell Distribution Width 18.4 % (11.8-14.3)
[2024-06-13 05:19] LABS: Urine Amorphous Crystal FEW /hpf (None Seen); Urine Blood TRACE /uL (Negative); Urine Clarity Turbid (Clear); Urine Color Yellow (Yellow); Urine Mucus FEW (None Seen); Urine Protein, UAD 1+ (Negative); Urine Specific Gravity 1.021 (1.001-1.035); Urine Urobilinogen 2 mg/dL (Negative); Urine WBC 2 /hpf (0 - 5); Urine pH 5.5 (5.0-9.0)
[2024-06-13 05:26] LABS: Hemoglobin 6.8 g/dL (12.2-16.2)
[2024-06-13] MEDS: PANTOPRAZOLE 40 MG TAB PO SCH (06:09)
[2024-06-13] MEDS: hydroCHLOROthiazide 25 MG TAB PO SCH (10:00)
[2024-06-13] MEDS: ENOXAPARIN SOD 40 MG/0.4 ML SYRINGE SC SCH (10:00)
[2024-06-13] MEDS: levoFLOXacin 500MG 100 ML IV SCH (10:00)
[2024-06-13] MEDS: LOSARTAN POTASSIUM 50 MG TAB PO SCH (10:00)
[2024-06-13 10:30] LABS: Amphetamine Screen, Urine Neg (NEGATIVE)
[2024-06-13 10:31] LABS: Barbiturate Scree,Urine Neg (NEGATIVE); Benzodiazephine Screen, Urine Pos (NEGATIVE)
[2024-06-13 10:32] LABS: Cannabinoid Screen, Urine Neg (NEGATIVE); Cocaine Screen, Urine Neg (NEGATIVE); Opiate Scree,Urine Neg (NEGATIVE); Phencyclidine Screen, Urine Neg (NEGATIVE)
[2024-06-13] MEDS: FERROUS SULFATE 325mg EC TAB PO SCH (10:54)
[2024-06-13] MEDS: LEVALBUTEROL HCL 1.25 MG/3 ML NEB NEB SCH (12:17)
[2024-06-13] MEDS: IPRATROPIUM BROM 0.5 MG/2.5ML INH SOL NEB SCH (12:17)
[2024-06-13] MEDS: IOHEXOL 350 MG/ML 100ML IJ ONE (12:55)
[2024-06-13] MEDS: FLUCONAZOLE 200MG/100ML 100 ML IV ONE (13:46)
[2024-06-13] MEDS: ERGOCALCIFEROL 50,000 UNIT(1.25MG) CAP PO SCH (15:21)
[2024-06-13] MEDS: CYANOCOBALAMIN (B-12) 1000 MCG/1 ML VIAL IM ONE (15:22)
[2024-06-13] MEDS: DIGOXIN (250MCG/ML) 2 ML AMPULE IV ONE (18:02)
[2024-06-13] MEDS ORDERED: ERGOCALCIFEROL 50,000 UNIT(1.25MG) CAP PO SCH (19:30)
[2024-06-13 21:12] LABS: Hemoglobin 7.5 g/dL (12.2-16.2)
[2024-06-13] MEDS ORDERED: ENOXAPARIN SOD 150 MG/1 ML SYRINGE SC SCH (22:00)
[2024-06-13 22:37] LABS: Basophils # (auto) 0 10 ^3/uL (0-0.2); Basophils % (auto) 0.6 % (0.0-2.0); Eosinophils # (auto) 0.1 10 ^3/uL (0-0.8); Eosinophils % (auto) 1.4 % (0.0-7.0); Hematocrit 25.1 % (36.0-46.0); Hemoglobin 8.2 g/dL (12.2-16.2); Lymphocytes # (auto) 0.5 10 ^3/uL (0.4-5.4); Lymphocytes % (auto) 6.4 % (10.0-50.0); Mean Corpuscular Hemoglobin 26.4 pg (28.0-32.0); Mean Corpuscular Hgb Conc. 32.6 g/dL (32.0-36.0); Monocytes # (auto) 0.6 10 ^3/uL (0-1.3); Monocytes % (auto) 7.6 % (0.0-12.0); Neutrophils # (auto) 6.6 10 ^3/uL (1.6-8.6); Nucleated Red Blood Cells % 0.3 %; Red Cell Distribution Width 17.9 % (11.8-14.3); White Blood Cell 7.9 10^3/uL (4.4-10.8)
[2024-06-13 22:50] LABS: Platelet Estimate Decreased
[2024-06-13 22:51] LABS: Hypochromia Slight
[2024-06-14] VITALS (16 sets, daily range): BP systolic 76–117; BP diastolic 39–60; PULSE 98–140; RESP 16–32; TEMP 97.4–98.4; O2SAT 96–100
[2024-06-14] MEDS ORDERED: PANTOPRAZOLE 40 MG TAB PO SCH (06:00)
[2024-06-14 06:53] LABS: Basophils # (auto) 0 10 ^3/uL (0-0.2); Eosinophils # (auto) 0.1 10 ^3/uL (0-0.8); Lymphocytes # (auto) 0.5 10 ^3/uL (0.4-5.4); Mean Corpuscular Hgb Conc. 33.5 g/dL (32.0-36.0); Neutrophils # (auto) 5.8 10 ^3/uL (1.6-8.6)
[2024-06-14 06:55] LABS: Basophils % (auto) 0.4 % (0.0-2.0); Eosinophils % (auto) 1.9 % (0.0-7.0); Hematocrit 24.4 % (36.0-46.0); Hemoglobin 8.2 g/dL (12.2-16.2); Lymphocytes % (auto) 7.7 % (10.0-50.0); Mean Corpuscular Hemoglobin 27.3 pg (28.0-32.0); Mean Corpuscular Volume 81.6 fL (80.0-100.0); Monocytes # (auto) 0.5 10 ^3/uL (0-1.3); Monocytes % (auto) 7.2 % (0.0-12.0); Neutrophils % (auto) 82.8 % (37.0-80.0); Nucleated Red Blood Cells % 0.1 %; Red Blood Cells 2.99 10^6/uL (4.0-5.20); Red Cell Distribution Width 17.7 % (11.8-14.3)
[2024-06-14 06:59] LABS: Albumin 2.4 g/dL (3.2-4.8); Alkaline Phosphatase 111 U/L (46-116); Anion Gap 7 (5-15); Aspartate Aminotransferase 13 U/L (13-40); BUN/Creatinine Ratio 35.1 (10.0-20.0); Bilirubin, Total 1.6 mg/dL (0.2-1.0); Blood Urea Nitrogen 26 mg/dL (9-23); Calcium 9.4 mg/dL (8.7-10.4); Carbon Dioxide 25 mmol/L (20-30); Chloride 107 mmol/L (98-107); Glucose 109 mg/dL (74-106); Sodium 139 mmol/L (136-145); Total Protein 4.8 g/dL (5.7-8.2)
[2024-06-14 07:00] LABS: Alanine Aminotransferase < 9 U/L (7-40)
[2024-06-14] MEDS: FLUCONAZOLE 200MG/100ML 100 ML IV SCH (09:27)
[2024-06-14] MEDS: LACTATED RINGER'S 500 ML IV ONE (10:00)
[2024-06-14] MEDS ORDERED: METOPROLOL TARTRATE 25 MG TAB PO ONE (10:00)
[2024-06-14] MEDS: HYALURONIDASE 150 UNIT/1 ML SUBCUT ONE (12:41)
[2024-06-14] MEDS ORDERED: ERGOCALCIFEROL 50,000 UNIT(1.25MG) CAP PO SCH (20:00)
[2024-06-14] MEDS: FUROSEMIDE 20 MG/2 ML VIAL IV ONE (22:53)
[2024-06-15] VITALS (25 sets, daily range): BP systolic 112–168; BP diastolic 41–60; PULSE 92–122; RESP 18–35; TEMP 97.4–98.8; O2SAT 94–100
[2024-06-15] MEDS: ALBUMIN 25% 100 ML IV SCH (00:41)
[2024-06-15 06:15] LABS: Basophils # (auto) 0 10 ^3/uL (0-0.2); Basophils % (auto) 0.2 % (0.0-2.0); Eosinophils # (auto) 0.1 10 ^3/uL (0-0.8)
[2024-06-15 06:18] LABS: Hematocrit 20.8 % (36.0-46.0); Lymphocytes # (auto) 0.4 10 ^3/uL (0.4-5.4); Lymphocytes % (auto) 7.8 % (10.0-50.0); Mean Corpuscular Hgb Conc. 33.2 g/dL (32.0-36.0); Mean Corpuscular Volume 81.3 fL (80.0-100.0); Monocytes # (auto) 0.4 10 ^3/uL (0-1.3); Neutrophils # (auto) 4.4 10 ^3/uL (1.6-8.6); Nucleated Red Blood Cells % 0.2 %; Red Blood Cells 2.56 10^6/uL (4.0-5.20); Red Cell Distribution Width 17.6 % (11.8-14.3); White Blood Cell 5.3 10^3/uL (4.4-10.8)
[2024-06-15 06:32] LABS: Albumin 2.4 g/dL (3.2-4.8); Alkaline Phosphatase 91 U/L (46-116); Aspartate Aminotransferase 11 U/L (13-40); Calcium 9.3 mg/dL (8.7-10.4)
[2024-06-15 06:33] LABS: Anion Gap 7 (5-15); BUN/Creatinine Ratio 34.8 (10.0-20.0); Bilirubin, Total 1.8 mg/dL (0.2-1.0); Blood Urea Nitrogen 23 mg/dL (9-23); Carbon Dioxide 26 mmol/L (20-30); Chloride 106 mmol/L (98-107); Glucose 97 mg/dL (74-106); Magnesium 1.7 mg/dL (1.6-2.6); Potassium 3.9 mmol/L (3.5-5.1); Sodium 139 mmol/L (136-145); Total Protein 4.6 g/dL (5.7-8.2)
[2024-06-15 06:34] LABS: Hemoglobin 6.9 g/dL (12.2-16.2)
[2024-06-15 06:35] LABS: Alanine Aminotransferase < 9 U/L (7-40)
[2024-06-15] MEDS: DIGOXIN 0.125 MG TAB PO SCH (10:00)
[2024-06-15 10:07] LABS: Hematocrit 20.1 % (36.0-46.0)
[2024-06-15 10:12] LABS: Hemoglobin 6.8 g/dL (12.2-16.2)
[2024-06-15] MEDS: AMIODARONE HCL 200 MG TAB PO SCH (15:50)
[2024-06-15 18:10] LABS: Hemoglobin 7.6 g/dL (12.2-16.2)
[2024-06-15] MEDS: MICAFUNGIN SODIUM 100 MG in SODIUM CHL 0.9% 100 ML IV ONE (20:02)
[2024-06-15] MEDS: CYANOCOBALAMIN (B-12) 1000 MCG/1 ML VIAL SUBCUT ONE (23:50)
[2024-06-16] VITALS (24 sets, daily range): BP systolic 138–169; BP diastolic 50–76; PULSE 108–142; RESP 18–37; TEMP 98.1–98.9; O2SAT 95–100
[2024-06-16] MEDS: dilTIAZem 25 MG/5 ML VIAL IV ONE (01:19)
[2024-06-16 04:32] LABS: Basophils # (auto) 0 10 ^3/uL (0-0.2); Basophils % (auto) 0.4 % (0.0-2.0); Eosinophils # (auto) 0 10 ^3/uL (0-0.8); Eosinophils % (auto) 0.5 % (0.0-7.0); Hematocrit 26.8 % (36.0-46.0); Hemoglobin 8.9 g/dL (12.2-16.2); Lymphocytes # (auto) 0.3 10 ^3/uL (0.4-5.4); Lymphocytes % (auto) 4.9 % (10.0-50.0); Mean Corpuscular Hemoglobin 27.8 pg (28.0-32.0); Mean Corpuscular Hgb Conc. 33.2 g/dL (32.0-36.0); Mean Corpuscular Volume 83.7 fL (80.0-100.0); Monocytes # (auto) 0.6 10 ^3/uL (0-1.3); Monocytes % (auto) 8.9 % (0.0-12.0); Neutrophils # (auto) 5.5 10 ^3/uL (1.6-8.6); Neutrophils % (auto) 85.3 % (37.0-80.0); Nucleated Red Blood Cells % 0.2 %; Red Blood Cells 3.21 10^6/uL (4.0-5.20); Red Cell Distribution Width 18.3 % (11.8-14.3); White Blood Cell 6.5 10^3/uL (4.4-10.8)
[2024-06-16 04:39] LABS: Chloride 106 mmol/L (98-107); Potassium 4.1 mmol/L (3.5-5.1); Sodium 137 mmol/L (136-145)
[2024-06-16 04:40] LABS: Anion Gap 6 (5-15); Carbon Dioxide 25 mmol/L (20-30)
[2024-06-16 04:45] LABS: BUN/Creatinine Ratio 23.1 (10.0-20.0); Blood Urea Nitrogen 15 mg/dL (9-23); Glucose 89 mg/dL (74-106)
[2024-06-16 06:52] LABS: Urine Bacteria FEW /hpf (None Seen); Urine Blood TRACE /uL (Negative); Urine Clarity Turbid (Clear); Urine Color Yellow (Yellow); Urine Hyaline Cast FEW /lpf (0 - 2); Urine Protein, UAD 1+ (Negative); Urine Specific Gravity 1.022 (1.001-1.035); Urine Urobilinogen 4 mg/dL (Negative); Urine WBC 6 /hpf (0 - 5)
[2024-06-16] MEDS ORDERED: METOPROLOL SUCCINATE XL 50 MG TAB PO ONE (08:30)
[2024-06-16] MEDS: METOPROLOL SUCCINATE XL 50 MG TAB PO SCH (10:38)
[2024-06-16] MEDS: MICAFUNGIN SODIUM 100 MG in SODIUM CHL 0.9% 100 ML IV SCH (10:45)
[2024-06-16 17:39] LABS: Albumin 3.1 g/dL (3.2-4.8); Total Protein 5.3 g/dL (5.7-8.2)
[2024-06-16 17:55] LABS: Body Fluid Polymorphonuclear 7 % (0-25); Body Fluid pH 7
[2024-06-16 18:05] LABS: Body Fluid Red Blood Cells 110 CUMM (0-2000); Body Fluid White Blood Cells 15 CUMM (0-200)
[2024-06-17] VITALS (29 sets, daily range): BP systolic 104–154; BP diastolic 43–92; PULSE 70–134; RESP 16–33; TEMP 96.1–100.6; O2SAT 93–100
[2024-06-17 05:05] LABS: Basophils # (auto) 0 10 ^3/uL (0-0.2); Basophils % (auto) 0.2 % (0.0-2.0); Eosinophils # (auto) 0 10 ^3/uL (0-0.8); Eosinophils % (auto) 0.3 % (0.0-7.0); Hematocrit 26.4 % (36.0-46.0); Hemoglobin 8.8 g/dL (12.2-16.2); Lymphocytes # (auto) 0.4 10 ^3/uL (0.4-5.4); Lymphocytes % (auto) 4.2 % (10.0-50.0); Mean Corpuscular Hemoglobin 27.4 pg (28.0-32.0); Mean Corpuscular Hgb Conc. 33.2 g/dL (32.0-36.0); Mean Corpuscular Volume 82.5 fL (80.0-100.0); Monocytes # (auto) 0.7 10 ^3/uL (0-1.3); Neutrophils # (auto) 7.4 10 ^3/uL (1.6-8.6); Neutrophils % (auto) 87.3 % (37.0-80.0); Nucleated Red Blood Cells % 0.1 %; Red Blood Cells 3.21 10^6/uL (4.0-5.20); Red Cell Distribution Width 18.5 % (11.8-14.3); White Blood Cell 8.5 10^3/uL (4.4-10.8)
[2024-06-17 05:23] LABS: Anion Gap 7 (5-15); Carbon Dioxide 24 mmol/L (20-30); Chloride 105 mmol/L (98-107); Potassium 4.3 mmol/L (3.5-5.1); Sodium 136 mmol/L (136-145)
[2024-06-17 05:29] LABS: Blood Urea Nitrogen 15 mg/dL (9-23); Glucose 82 mg/dL (74-106)
[2024-06-17] MEDS: hydrOXYzine HCL 10 MG TAB PO PRN (22:56)
[2024-06-18] VITALS (15 sets, daily range): BP systolic 96–132; BP diastolic 44–78; PULSE 66–102; RESP 16–20; TEMP 97.4–97.9; O2SAT 93–100
[2024-06-18 07:17] LABS: Basophils # (auto) 0 10 ^3/uL (0-0.2); Eosinophils # (auto) 0.1 10 ^3/uL (0-0.8); Hematocrit 24.5 % (36.0-46.0); Lymphocytes # (auto) 0.6 10 ^3/uL (0.4-5.4); Mean Corpuscular Hemoglobin 27.8 pg (28.0-32.0); Monocytes # (auto) 0.4 10 ^3/uL (0-1.3)
[2024-06-18 07:20] LABS: Basophils % (auto) 0.4 % (0.0-2.0); Eosinophils % (auto) 1.6 % (0.0-7.0); Hemoglobin 8.1 g/dL (12.2-16.2); Lymphocytes % (auto) 9.9 % (10.0-50.0); Mean Corpuscular Hgb Conc. 33.2 g/dL (32.0-36.0); Mean Corpuscular Volume 83.5 fL (80.0-100.0); Neutrophils # (auto) 4.9 10 ^3/uL (1.6-8.6); Neutrophils % (auto) 81.1 % (37.0-80.0); Red Blood Cells 2.93 10^6/uL (4.0-5.20); Red Cell Distribution Width 18.8 % (11.8-14.3)
[2024-06-18 07:33] LABS: Anion Gap 11 (5-15); Calcium 10.3 mg/dL (8.7-10.4); Carbon Dioxide 21 mmol/L (20-30); Chloride 105 mmol/L (98-107); Potassium 4.4 mmol/L (3.5-5.1); Sodium 137 mmol/L (136-145)
[2024-06-18 07:39] LABS: BUN/Creatinine Ratio 42.9 (10.0-20.0); Blood Urea Nitrogen 21 mg/dL (9-23); Glucose 83 mg/dL (74-106)
[2024-06-18] MEDS ORDERED: ENOXAPARIN SOD 30 MG/0.3 ML SYRINGE IV ONE (09:45)
[2024-06-18] MEDS ORDERED: ENOXAPARIN SOD 30 MG/0.3 ML SYRINGE SC SCH (10:00)
[2024-06-19] VITALS (10 sets, daily range): BP systolic 117–134; BP diastolic 45–60; PULSE 62–97; RESP 16–21; TEMP 97.1–98.1; O2SAT 94–100
[2024-06-19 07:03] LABS: Chloride 105 mmol/L (98-107); Potassium 4.3 mmol/L (3.5-5.1); Sodium 136 mmol/L (136-145)
[2024-06-19 07:04] LABS: Anion Gap 6 (5-15); Calcium 9.9 mg/dL (8.7-10.4); Carbon Dioxide 25 mmol/L (20-30)
[2024-06-19 07:09] LABS: BUN/Creatinine Ratio 31.3 (10.0-20.0); Blood Urea Nitrogen 15 mg/dL (9-23); Glucose 66 mg/dL (74-106)
[2024-06-19 07:10] LABS: Hematocrit 25.5 % (36.0-46.0); Hemoglobin 8.5 g/dL (12.2-16.2); Mean Corpuscular Hemoglobin 27.9 pg (28.0-32.0); Mean Corpuscular Hgb Conc. 33.3 g/dL (32.0-36.0); Mean Corpuscular Volume 83.7 fL (80.0-100.0); Red Blood Cells 3.05 10^6/uL (4.0-5.20); Red Cell Distribution Width 19.1 % (11.8-14.3)
[2024-06-19 07:22] LABS: Basophils % (manual) 0 (0.0-2.0); Blast Cells 0; Metamyelocytes % 0; Myelocytes % 0; Promyelocytes % 0; Reactive Lymphocytes 0
[2024-06-19] MEDS: DOCUSATE SOD 100 MG CAP PO SCH (10:09)
[2024-06-19 11:15] LABS: Band Neutrophils % (manual) 5; Eosinophils % (manual) 1 (0-7); Lymphocytes % (manual) 11 (10.0-50.0); Monocytes % (manual) 6 (0-12); Platelet Estimate Decreased
[2024-06-19] MEDS ORDERED: METO-6 PO (14:04)
[2024-06-19] MEDS ORDERED: LOSA-534 PO (14:04)
[2024-06-19] MEDS ORDERED: AMIO200T13 PO (14:04)
[2024-06-20 14:06] LABS: Protein, Body Fluid 1.4 g/dL (.)
== END 2024-06-19 18:40 | disposition home health service (06) | DRG 871 ==
LOC: EDBD 20:18 → ER 20:18 → TELE 22:13 → TELE-CENTR 06-13 22:40 → ICU CENTRL 06-15 02:53 → DOU IN ICU 06-15 02:54 → TELE-EAST 06-17 17:52
PROVIDERS: ADMIT Internal Medicine; ATTEND Internal Medicine
PROC: 30233N1 Transfusion of Nonautologous Red Blood Cells into Peripheral Vein, Percutaneous Approach (ICD-10-PCS; principal; 2024-06-13)
PROC: 0W993ZZ Drainage of Right Pleural Cavity, Percutaneous Approach (ICD-10-PCS; 2024-06-16)
DX: A41.9 Sepsis, unspecified organism (principal); G93.41 Metabolic encephalopathy; J96.21 Acute and chronic respiratory failure with hypoxia; J45.901 Unspecified asthma with (acute) exacerbation; C85.90 Non-Hodgkin lymphoma, unspecified, unspecified site; G93.1 Anoxic brain damage, not elsewhere classified; E87.3 Alkalosis; N39.0 Urinary tract infection, site not specified; C83.30 Diffuse large B-cell lymphoma, unspecified site; E66.01 Morbid (severe) obesity due to excess calories; I48.0 Paroxysmal atrial fibrillation; I12.9 Hypertensive chronic kidney disease with stage 1 through stage 4 chronic kidney disease, or unspecified chronic kidney disease; M71.22 Synovial cyst of popliteal space [Baker], left knee; K21.9 Gastro-esophageal reflux disease without esophagitis; E55.9 Vitamin D deficiency, unspecified; N18.2 Chronic kidney disease, stage 2 (mild); F41.9 Anxiety disorder, unspecified; D50.9 Iron deficiency anemia, unspecified; Z88.1 Allergy status to other antibiotic agents; Z88.0 Allergy status to penicillin; Z82.49 Family history of ischemic heart disease and other diseases of the circulatory system; Z83.3 Family history of diabetes mellitus; Z68.38 Body mass index [BMI] 38.0-38.9, adult
CPT/HCPCS: 36415; 36600; 71045; 71275; 76604; 76942; 80048; 80053; 80162; 80307; 81001; 82040; 82248; 82306; 82607; 82805; 82962; 83605; 83615; 83735; 83880; 83986; 84155; 84484; 85007; 85014; 85018; 85025; 85027; 85379; 85610; 85730; 86850; 86885; 86900; 86901; 86920; 87040; 87081; 87086; 87088; 87205; 89051; 93005; 93970; 94640; 97110; 97116; 97163; 97530; 99291; G0378; J1450; J1642; J2248; J2405; J3470; P9047

== ENCOUNTER 2024-06-23 20:03 | Inpatient (IN) | payer OTHER ==
[~2024-06-23] VITALS: Ht 157.5 cm; Wt 94.8 kg
[~2024-06-23 20:03] MED LIST changes: +AMIO200T13 PO; -FLUC100T34 PO; +LOSA-534 PO; -LOSA100T33 PO; -MET50T PO; +METO-6 PO; -[UNRECOGNIZED DRUG - CODE]
[2024-06-23] MEDS: IPRATROPIUM BROM 0.5 MG/2.5ML INH SOL NEB ONE (20:58)
[2024-06-23] MEDS: ALBUTEROL SULF 2.5 MG/0.5ML(0.5%) NEB SOLN NEB ONE (20:58)
[2024-06-23 21:02] LABS: Base Excess 1.2 mmol/L (-2.0-2.0)
[2024-06-23 21:36] LABS: Basophils # (auto) 0.1 10 ^3/uL (0-0.2); Eosinophils # (auto) 0.1 10 ^3/uL (0-0.8); Lymphocytes # (auto) 0.8 10 ^3/uL (0.4-5.4); Nucleated Red Blood Cells % 0.5 %
[2024-06-23 21:38] LABS: Basophils % (auto) 0.7 % (0.0-2.0); Eosinophils % (auto) 1.2 % (0.0-7.0); Hematocrit 23.4 % (36.0-46.0); Lymphocytes % (auto) 11.6 % (10.0-50.0); Mean Corpuscular Hemoglobin 27.7 pg (28.0-32.0); Mean Corpuscular Volume 81.5 fL (80.0-100.0); Monocytes # (auto) 0.9 10 ^3/uL (0-1.3); Monocytes % (auto) 13.3 % (0.0-12.0); Neutrophils % (auto) 73.2 % (37.0-80.0); Red Blood Cells 2.87 10^6/uL (4.0-5.20); Red Cell Distribution Width 18.8 % (11.8-14.3); White Blood Cell 6.8 10^3/uL (4.4-10.8)
[2024-06-23 21:44] LABS: Urine Bacteria None Seen /hpf (None Seen)
[2024-06-23 21:52] LABS: Albumin 2.9 g/dL (3.2-4.8); Alkaline Phosphatase 131 U/L (46-116); Anion Gap 13 (5-15); Aspartate Aminotransferase 19 U/L (13-40); BUN/Creatinine Ratio 18.5 (10.0-20.0); Blood Urea Nitrogen 10 mg/dL (9-23); Calcium 10.1 mg/dL (8.7-10.4); Carbon Dioxide 21 mmol/L (20-30); Chloride 100 mmol/L (98-107); Glucose 78 mg/dL (74-106); Sodium 134 mmol/L (136-145)
[2024-06-23 21:53] LABS: Total Protein 5.7 g/dL (5.7-8.2)
[2024-06-23] MEDS: FUROSEMIDE 40 MG/4 ML VIAL IV ONE (21:56)
[2024-06-23 22:00] LABS: Alanine Aminotransferase < 9 U/L (7-40)
[2024-06-23 22:00] LABS: Urine Blood TRACE /uL (Negative); Urine Clarity Turbid (Clear); Urine Color Yellow (Yellow); Urine Mucus FEW (None Seen); Urine Protein, UAD TRACE (Negative); Urine Specific Gravity 1.018 (1.001-1.035); Urine Urobilinogen 12 mg/dL (Negative); Urine WBC 2 /hpf (0 - 5); Urine pH 5.5 (5.0-9.0)
[2024-06-23] MEDS: MAGNESIUM SULFATE 1GM/100ML 100 ML IV SCH (22:01)
[2024-06-24] VITALS (8 sets, daily range): BP systolic 139–146; BP diastolic 52–66; PULSE 59–83; RESP 18–22; TEMP 98.1; O2SAT 94–97
[2024-06-24] MEDS: IOHEXOL 350 MG/ML 100ML IJ ONE (01:14)
[2024-06-24 02:23] LABS: Rapid Influenza A Negative (Negative); Rapid Influenza B Negative (Negative)
[2024-06-24 02:24] LABS: COVID19 ANTIGEN SOFIA FIA NEGATIVE (NEGATIVE)
[2024-06-24] MEDS ORDERED: ONDANSETRON HCL 4 MG/2 ML VIAL IV PRN (04:15)
[2024-06-24] MEDS ORDERED: DOCUSATE SOD 100 MG CAP PO PRN (04:15)
[2024-06-24] MEDS ORDERED: hydrALAZINE HCL 20 MG/ML VL IV PRN (04:15)
[2024-06-24] MEDS ORDERED: IPRATROPIUM BROM 0.5 MG/2.5ML INH SOL NEB PRN (04:15)
[2024-06-24] MEDS ORDERED: ALBUTEROL SULF 2.5 MG/0.5ML(0.5%) NEB SOLN NEB PRN (04:15)
[2024-06-24] MEDS ORDERED: ACETAMINOPHEN 325 MG TAB PO PRN (04:15)
[2024-06-24 05:01] LABS: Basophils % (auto) 0.8 % (0.0-2.0); Eosinophils # (auto) 0.1 10 ^3/uL (0-0.8); Hematocrit 22.7 % (36.0-46.0); Lymphocytes # (auto) 0.8 10 ^3/uL (0.4-5.4); Monocytes # (auto) 0.8 10 ^3/uL (0-1.3); Nucleated Red Blood Cells % 0.4 %
[2024-06-24 05:03] LABS: Basophils # (auto) 0.1 10 ^3/uL (0-0.2); Eosinophils % (auto) 1.6 % (0.0-7.0); Hemoglobin 7.6 g/dL (12.2-16.2); Lymphocytes % (auto) 13.2 % (10.0-50.0); Mean Corpuscular Hemoglobin 27.2 pg (28.0-32.0); Mean Corpuscular Hgb Conc. 33.6 g/dL (32.0-36.0); Mean Corpuscular Volume 81.1 fL (80.0-100.0); Monocytes % (auto) 13.8 % (0.0-12.0); Neutrophils # (auto) 4.3 10 ^3/uL (1.6-8.6); Neutrophils % (auto) 70.6 % (37.0-80.0); Red Blood Cells 2.79 10^6/uL (4.0-5.20); Red Cell Distribution Width 18.4 % (11.8-14.3); White Blood Cell 6.1 10^3/uL (4.4-10.8)
[2024-06-24 05:20] LABS: Albumin 2.8 g/dL (3.2-4.8); Alkaline Phosphatase 119 U/L (46-116); Anion Gap 9 (5-15); Aspartate Aminotransferase 18 U/L (13-40); BUN/Creatinine Ratio 16.4 (10.0-20.0); Bilirubin, Total 2.9 mg/dL (0.2-1.0); Blood Urea Nitrogen 9 mg/dL (9-23); Calcium 9.9 mg/dL (8.7-10.4); Carbon Dioxide 29 mmol/L (20-30); Chloride 96 mmol/L (98-107); Glucose 83 mg/dL (74-106); Potassium 3.5 mmol/L (3.5-5.1); Sodium 134 mmol/L (136-145); Total Protein 5.6 g/dL (5.7-8.2)
[2024-06-24 05:23] LABS: Alanine Aminotransferase < 9 U/L (7-40)
[2024-06-24] MEDS: methylPREDNISolone SOD SUCC 40 MG/ML VL IV SCH (05:37)
[2024-06-24] MEDS: methylPREDNISolone SOD SUCC 125 MG/2 ML VL IV ONE (05:44)
[2024-06-24] MEDS: SODIUM CHLORIDE 0.9% 1,000 ML IV SCH (05:44)
[2024-06-24] MEDS ORDERED: MORPHINE SULFATE INJ 2 MG/ml SYRG IV PRN (06:15)
[2024-06-24] MEDS ORDERED: NITROGLYCERIN 0.4 MG SL TAB SL PRN (06:15)
[2024-06-24 08:34] LABS: Magnesium 1.8 mg/dL (1.6-2.6)
[2024-06-24 08:35] LABS: Phosphorus 3.8 mg/dL (2.4-5.1)
[2024-06-24 09:31] LABS: INR 1.24 (0.9-1.15); Partial Thromboplastin Time 30.1 SEC (24.5-34.5); Prothrombin Time 12.9 sec (9.3-11.8)
[2024-06-24] MEDS: FAMOTIDINE (10MG/ML) 2ML VL IV SCH (10:19)
[2024-06-24] MEDS: METOPROLOL TARTRATE 25 MG TAB PO SCH (10:23)
[2024-06-24] MEDS: PANTOPRAZOLE 40 MG TAB PO ONE (11:59)
[2024-06-24] MEDS: MICAFUNGIN SODIUM 100 MG in SODIUM CHL 0.9% 100 ML IV ONE (12:07)
[2024-06-24] MEDS: IRON SUCROSE COMPLEX 100 ML IV SCH (12:12)
[2024-06-24 13:11] LABS: Amphetamine Screen, Urine Neg (NEGATIVE); Barbiturate Scree,Urine Neg (NEGATIVE); Benzodiazephine Screen, Urine Neg (NEGATIVE); Cannabinoid Screen, Urine Neg (NEGATIVE); Cocaine Screen, Urine Neg (NEGATIVE); Opiate Scree,Urine Neg (NEGATIVE); Phencyclidine Screen, Urine Neg (NEGATIVE)
[2024-06-24] MEDS: ERGOCALCIFEROL 50,000 UNIT(1.25MG) CAP PO SCH (13:40)
[2024-06-24] MEDS: CYANOCOBALAMIN 500 MCG TAB PO ONE (13:40)
[2024-06-24] MEDS: MAGNESIUM SULFATE 1GM/100ML 100 ML IV ONE (13:41)
[2024-06-24] MEDS: POTASSIUM CHL 20MEQ/100ML 100 ML IV ONE (13:41)
[2024-06-24 15:14] LABS: Base Excess 3.8 mmol/L (-2.0-2.0)
[2024-06-24] MEDS: AMIODARONE HCL 200 MG TAB PO SCH (22:21)
[2024-06-25] VITALS (11 sets, daily range): BP systolic 113–137; BP diastolic 51–60; PULSE 58–75; RESP 16–20; TEMP 97.5–98.6; O2SAT 91–96
[2024-06-25] MEDS: MELATONIN 5 MG TAB PO ONE (03:42)
[2024-06-25 05:59] LABS: Basophils # (auto) 0 10 ^3/uL (0-0.2); Basophils % (auto) 0.1 % (0.0-2.0); Eosinophils # (auto) 0 10 ^3/uL (0-0.8); Lymphocytes % (auto) 16.5 % (10.0-50.0); Mean Corpuscular Hemoglobin 27.5 pg (28.0-32.0); Mean Corpuscular Hgb Conc. 33.3 g/dL (32.0-36.0); Mean Corpuscular Volume 82.5 fL (80.0-100.0); Monocytes # (auto) 0.3 10 ^3/uL (0-1.3); Monocytes % (auto) 5.6 % (0.0-12.0); Neutrophils # (auto) 4.9 10 ^3/uL (1.6-8.6); Neutrophils % (auto) 77.8 % (37.0-80.0); Nucleated Red Blood Cells % 0.2 %; Red Blood Cells 2.54 10^6/uL (4.0-5.20); Red Cell Distribution Width 18.6 % (11.8-14.3); White Blood Cell 6.3 10^3/uL (4.4-10.8)
[2024-06-25 06:23] LABS: Albumin 2.4 g/dL (3.2-4.8); Alkaline Phosphatase 106 U/L (46-116); Anion Gap 13 (5-15); Aspartate Aminotransferase 13 U/L (13-40); BUN/Creatinine Ratio 30.8 (10.0-20.0); Bilirubin, Total 2.1 mg/dL (0.2-1.0); Blood Urea Nitrogen 16 mg/dL (9-23); Carbon Dioxide 26 mmol/L (20-30); Chloride 99 mmol/L (98-107); Glucose 119 mg/dL (74-106); Potassium 3.9 mmol/L (3.5-5.1); Sodium 138 mmol/L (136-145); Total Protein 4.6 g/dL (5.7-8.2)
[2024-06-25 06:40] LABS: Alanine Aminotransferase < 9 U/L (7-40)
[2024-06-25] MEDS: CYANOCOBALAMIN 500 MCG TAB PO SCH (09:41)
[2024-06-25] MEDS: MICAFUNGIN SODIUM 100 MG in SODIUM CHL 0.9% 100 ML IV SCH (12:02)
[2024-06-25 12:24] LABS: Hematocrit 20.2 % (36.0-46.0)
[2024-06-25 12:26] LABS: Hemoglobin 6.8 g/dL (12.2-16.2)
[2024-06-25] MEDS: FUROSEMIDE 20 MG/2 ML VIAL IV SCH (13:20)
[2024-06-25 14:03] LABS: % Iron Saturation 31.8 % (15-50)
[2024-06-25] MEDS: FUROSEMIDE 20 MG/2 ML VIAL IV ONE (17:28)
[2024-06-25] MEDS: cefTRIAXone 1GM/50ML D5W 50 ML IV SCH (17:32)
[2024-06-26] VITALS (13 sets, daily range): BP systolic 115–138; BP diastolic 57–72; PULSE 53–71; RESP 18–22; TEMP 97.5–98.3; O2SAT 91–98
[2024-06-26] MEDS: HYDROcodone-ACET 5/325MG TAB PO PRN (00:25)
[2024-06-26] MEDS: PANTOPRAZOLE 40 MG TAB PO SCH (06:03)
[2024-06-26 06:06] LABS: Hematocrit 26.4 % (36.0-46.0); Hemoglobin 9.1 g/dL (12.2-16.2); Mean Corpuscular Hemoglobin 28.4 pg (28.0-32.0); Mean Corpuscular Hgb Conc. 34.6 g/dL (32.0-36.0); Mean Corpuscular Volume 82.1 fL (80.0-100.0); Red Blood Cells 3.22 10^6/uL (4.0-5.20); Red Cell Distribution Width 17.9 % (11.8-14.3); White Blood Cell 9.8 10^3/uL (4.4-10.8)
[2024-06-26 06:10] LABS: Chloride 100 mmol/L (98-107); Potassium 3.8 mmol/L (3.5-5.1); Sodium 138 mmol/L (136-145)
[2024-06-26 06:11] LABS: Anion Gap 10 (5-15); Carbon Dioxide 28 mmol/L (20-30)
[2024-06-26 06:12] LABS: Calcium 9.4 mg/dL (8.7-10.4)
[2024-06-26 06:16] LABS: BUN/Creatinine Ratio 25.9 (10.0-20.0); Blood Urea Nitrogen 15 mg/dL (9-23); Glucose 125 mg/dL (74-106)
[2024-06-26 06:19] LABS: Basophils % (manual) 0 (0.0-2.0); Blast Cells 0; Eosinophils % (manual) 0 (0-7); Metamyelocytes % 0; Myelocytes % 0; Promyelocytes % 0; Reactive Lymphocytes 0
[2024-06-26 07:42] LABS: Anisocytosis Slight; Band Neutrophils % (manual) 1; Lymphocytes % (manual) 11 (10.0-50.0); Monocytes % (manual) 4 (0-12)
[2024-06-26 07:43] LABS: Platelet Estimate Adequate
[2024-06-26 12:06] LABS: Ferritin > 3300.0 ng/mL (10-291)
[2024-06-26 12:24] LABS: Folate (Folic Acid) 6.87 ng/mL (>5.38)
[2024-06-26] MEDS: QUEtiapine FUMARATE 25 MG TAB PO ONE (15:19)
[2024-06-26] MEDS ORDERED: VANCOMYCIN PER PHARMACY 0 MG IV SCH (16:45)
[2024-06-26] MEDS: VANCOMYCIN 1GM/200ML 200 ML IV ONE (18:24)
[2024-06-27] VITALS (12 sets, daily range): BP systolic 127–141; BP diastolic 51–71; PULSE 48–104; RESP 18–20; TEMP 97.5–98.6; O2SAT 90–98
[2024-06-27] MEDS: VANCOMYCIN 1GM/200ML 200 ML IV SCH (05:04)
[2024-06-27 06:10] LABS: Basophils # (auto) 0 10 ^3/uL (0-0.2); Basophils % (auto) 0.1 % (0.0-2.0); Eosinophils # (auto) 0 10 ^3/uL (0-0.8); Hematocrit 27.1 % (36.0-46.0); Lymphocytes # (auto) 0.8 10 ^3/uL (0.4-5.4); Lymphocytes % (auto) 11.6 % (10.0-50.0); Mean Corpuscular Hgb Conc. 33.2 g/dL (32.0-36.0); Mean Corpuscular Volume 81.4 fL (80.0-100.0); Monocytes # (auto) 0.3 10 ^3/uL (0-1.3); Neutrophils # (auto) 5.8 10 ^3/uL (1.6-8.6); Neutrophils % (auto) 84.3 % (37.0-80.0); Nucleated Red Blood Cells % 0.4 %; Red Blood Cells 3.32 10^6/uL (4.0-5.20); Red Cell Distribution Width 17.8 % (11.8-14.3); White Blood Cell 6.9 10^3/uL (4.4-10.8)
[2024-06-27 06:14] LABS: Anion Gap 11 (5-15); Carbon Dioxide 32 mmol/L (20-30); Chloride 99 mmol/L (98-107); Potassium 2.9 mmol/L (3.5-5.1); Sodium 142 mmol/L (136-145)
[2024-06-27 06:15] LABS: Calcium 9.1 mg/dL (8.7-10.4)
[2024-06-27 06:20] LABS: BUN/Creatinine Ratio 31.6 (10.0-20.0); Blood Urea Nitrogen 18 mg/dL (9-23); Glucose 126 mg/dL (74-106)
[2024-06-27] MEDS: POTASSIUM CHL 20MEQ/100ML 100 ML IV SCH (09:07)
[2024-06-27] MEDS: ENOXAPARIN SOD 40 MG/0.4 ML SYRINGE SC SCH (11:02)
[2024-06-27] MEDS: SODIUM FERR GLUC 62.5MG/5ML 110 ML IV SCH (15:00)
[2024-06-27] MEDS ORDERED: POTASSIUM CHL 20MEQ/100ML 100 ML IV SCH (15:45)
[2024-06-27] MEDS: POTASSIUM EFFERVESENT TAB 25 MEQ PO ONE (17:53)
[2024-06-27] MEDS: ALBUMIN 25% 50 ML IV ONE (18:05)
[2024-06-28] VITALS (10 sets, daily range): BP systolic 136–143; BP diastolic 46–63; PULSE 48–66; RESP 18–20; TEMP 97.4–98.8; O2SAT 93–97
[2024-06-28 04:23] LABS: Basophils # (auto) 0 10 ^3/uL (0-0.2); Basophils % (auto) 0.1 % (0.0-2.0); Eosinophils # (auto) 0 10 ^3/uL (0-0.8); Hematocrit 24.8 % (36.0-46.0); Hemoglobin 8.3 g/dL (12.2-16.2); Lymphocytes # (auto) 0.7 10 ^3/uL (0.4-5.4); Mean Corpuscular Hemoglobin 27.5 pg (28.0-32.0); Mean Corpuscular Hgb Conc. 33.3 g/dL (32.0-36.0); Mean Corpuscular Volume 82.7 fL (80.0-100.0); Monocytes # (auto) 0.4 10 ^3/uL (0-1.3); Monocytes % (auto) 6.2 % (0.0-12.0); Neutrophils # (auto) 4.8 10 ^3/uL (1.6-8.6); Neutrophils % (auto) 81.7 % (37.0-80.0); Nucleated Red Blood Cells % 0.3 %; Red Cell Distribution Width 17.6 % (11.8-14.3); White Blood Cell 5.9 10^3/uL (4.4-10.8)
[2024-06-28 04:29] LABS: Chloride 100 mmol/L (98-107); Potassium 3.5 mmol/L (3.5-5.1); Sodium 141 mmol/L (136-145)
[2024-06-28 04:30] LABS: Anion Gap 7 (5-15); Calcium 8.9 mg/dL (8.7-10.4); Carbon Dioxide 34 mmol/L (20-30)
[2024-06-28 04:35] LABS: BUN/Creatinine Ratio 30.9 (10.0-20.0); Blood Urea Nitrogen 17 mg/dL (9-23); Glucose 139 mg/dL (74-106)
[2024-06-28 04:37] LABS: Albumin 2.7 g/dL (3.2-4.8)
[2024-06-28] MEDS ORDERED: VANCOMYCIN 1GM/200ML 200 ML IV SCH (11:00)
[2024-06-28] MEDS: VANCOMYCIN 1GM/200ML 200 ML IV SCH (18:00)
[2024-06-29 01:00] VITALS: BP 126/47; PULSE 76; RESP 16; TEMP 98.8; O2SAT 97
[2024-06-29 05:18] VITALS: BP 127/39; PULSE 57; RESP 19; TEMP 97.9; O2SAT 97
[2024-06-29 06:02] LABS: Basophils # (auto) 0 10 ^3/uL (0-0.2); Basophils % (auto) 0.2 % (0.0-2.0); Eosinophils # (auto) 0 10 ^3/uL (0-0.8); Eosinophils % (auto) 0.3 % (0.0-7.0); Hematocrit 26.3 % (36.0-46.0); Hemoglobin 8.7 g/dL (12.2-16.2); Lymphocytes % (auto) 16.2 % (10.0-50.0); Mean Corpuscular Hemoglobin 27.5 pg (28.0-32.0); Mean Corpuscular Hgb Conc. 33.1 g/dL (32.0-36.0); Mean Corpuscular Volume 83.1 fL (80.0-100.0); Monocytes # (auto) 0.6 10 ^3/uL (0-1.3); Monocytes % (auto) 10.4 % (0.0-12.0); Neutrophils # (auto) 4.6 10 ^3/uL (1.6-8.6); Neutrophils % (auto) 72.9 % (37.0-80.0); Nucleated Red Blood Cells % 0.5 %; Red Blood Cells 3.17 10^6/uL (4.0-5.20); Red Cell Distribution Width 18.3 % (11.8-14.3); White Blood Cell 6.3 10^3/uL (4.4-10.8)
[2024-06-29 06:11] LABS: Anion Gap 5 (5-15); Calcium 9.1 mg/dL (8.7-10.4); Carbon Dioxide 37 mmol/L (20-30); Chloride 101 mmol/L (98-107); Potassium 2.9 mmol/L (3.5-5.1); Sodium 143 mmol/L (136-145)
[2024-06-29 06:17] LABS: BUN/Creatinine Ratio 36.5 (10.0-20.0); Blood Urea Nitrogen 19 mg/dL (9-23); Glucose 97 mg/dL (74-106)
[2024-06-29 08:51] VITALS: BP 136/58; PULSE 56; RESP 18; TEMP 97.4
[2024-06-29 09:27] VITALS: BP 136/58; PULSE 56; RESP 18; TEMP 97.4; O2SAT 97
[2024-06-29 10:00] VITALS: O2SAT 97
[2024-06-29] MEDS: DOXYCYCLINE 100 MG TAB/CAP PO SCH (11:39)
[2024-06-29] MEDS: POTASSIUM CHL 20MEQ/100ML 100 ML IV SCH (11:50)
[2024-06-29 13:00] VITALS: BP 117/47; PULSE 67; RESP 18; TEMP 97.4; O2SAT 97
== END 2024-06-29 16:28 | disposition hospice, home (50) | DRG 871 ==
LOC: ER 20:03 → EDBD 20:03 → TELE 06-24 06:10 → TELE-WESTW 06-24 16:28 → WEST WING 06-28 16:55
PROVIDERS: ADMIT Internal Medicine; ATTEND Internal Medicine
PROC: 30233N1 Transfusion of Nonautologous Red Blood Cells into Peripheral Vein, Percutaneous Approach (ICD-10-PCS; principal; 2024-06-25)
DX: A41.9 Sepsis, unspecified organism (principal); J96.01 Acute respiratory failure with hypoxia; J45.901 Unspecified asthma with (acute) exacerbation; Z68.42 Body mass index [BMI] 45.0-49.9, adult; J98.11 Atelectasis; C83.30 Diffuse large B-cell lymphoma, unspecified site; I13.0 Hypertensive heart and chronic kidney disease with heart failure and stage 1 through stage 4 chronic kidney disease, or unspecified chronic kidney disease; B37.49 Other urogenital candidiasis; Z51.5 Encounter for palliative care; D64.9 Anemia, unspecified; E66.01 Morbid (severe) obesity due to excess calories; E83.42 Hypomagnesemia; N18.9 Chronic kidney disease, unspecified; I48.0 Paroxysmal atrial fibrillation; K21.9 Gastro-esophageal reflux disease without esophagitis; G47.33 Obstructive sleep apnea (adult) (pediatric); I50.9 Heart failure, unspecified; F41.9 Anxiety disorder, unspecified; Z88.0 Allergy status to penicillin; Z88.1 Allergy status to other antibiotic agents; Z82.49 Family history of ischemic heart disease and other diseases of the circulatory system; Z83.3 Family history of diabetes mellitus
CPT/HCPCS: 36415; 36600; 80048; 80053; 80202; 80307; 81001; 82040; 82306; 82607; 82728; 82746; 82805; 82962; 83540; 83550; 83605; 83615; 83735; 83880; 84100; 84132; 85007; 85014; 85018; 85025; 85027; 85045; 85379; 85610; 85730; 86850; 86900; 86901; 86920; 87040; 87077; 87081; 87086; 87088; 87186; 87426; 87804; 93005; 94640; 96365; 96366; 96375; 97110; 97116; 97163; 97530; G0378; J1642; J1756; J2248; J3480; J3490